=== PATIENT | female | born 1980 | race Caucasian/White ===

== ENCOUNTER 2018-08-09 14:42 | Emergency (ER) | payer BC ==
[2018-08-09] MEDS ORDERED: Ketorolac 60 MG/2 ML SDV IM ONE (15:12)
--- NOTE | 2018-08-09 15:21 | EDM.PDOC ---
ED HPI GENERAL MEDICAL PROBLEM - General Chief Complaint: General Stated Complaint: FALL Time Seen by Provider: 08/09/18 14:42 Source of Information: Reports: Patient, Family History Limitations: Reports: No Limitations - History of Present Illness INITIAL COMMENTS - FREE TEXT/NARRATIVE: 38 y.o.w.f came with her SO to the ed after she fell on ice and hit her right ant gideon. right knee and right ankle. Pt c/o worst H/A ever, neck pain, right knee pain and right ankle pain. No LOC, Pt is not on blood thinner. Pt takes Hydrocodone regularly for gen pain. Pt has peripheral neuropathy as well with right food drop. Pt is wearing a special show for that. No N/V/D or dizziness or any other acute medical medical issues. 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 (see below) (norco) Right knee Pain Score (Numeric/FACES): 8 Headache Pain Score (Numeric/FACES): 8 - Related Data Allergies Allergy/AdvReac Type Severity Reaction Status Date / Time codeine Allergy Rash Verified 08/09/18 14:48 Home Meds: Home Meds ALPRAZolam [Alprazolam] 1 mg PO TID 08/09/18 [History] Aspirin [Halfprin] 81 mg PO DAILY 08/09/18 [History] Cyclobenzaprine [Flexeril] 10 mg PO BID 08/09/18 [History] Escitalopram [Lexapro] 20 mg PO DAILY 08/09/18 [History] Gabapentin [Neurontin] 200 mg PO TID 08/09/18 [History] Hydrocodone/Acetaminophen [Hydrocodon-Acetaminophn 10-325] 1 each PO TID [History] Omeprazole 20 mg PO DAILY 08/09/18 [History] Past Medical History HEENT History: Reports: Impaired Vision, Other (See Below) Other HEENT History: Contact lens bilaterally. Respiratory History: Reports: PE, Other (See Below) Other Respiratory History: Hx: Respiratory distress Gastrointestinal History: Reports: GERD, Other (See Below) Other Gastrointestinal History: Nectrotizing pancreatitis. 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 Psychiatric History: Reports: Anxiety, Depression, PTSD Endocrine/Metabolic History: Reports: Obesity/BMI 30+ Hematologic History: Reports: Blood Transfusion(s) Oncologic (Cancer) History: Reports: Other (See Below) Other Oncologic History: Abdominal - Past Surgical History GI Surgical History: Reports: Cholecystectomy, Other (See Below) Other GI Surgeries/Procedures: Spleenectomy. Social & Family History - Family History Family Medical History: Noncontributory - Tobacco Use Smoking Status *Q: Never Smoker Second Hand Smoke Exposure: No - Caffeine Use Caffeine Use: Reports: Coffee, Energy Drinks, Soda - Recreational Drug Use Recreational Drug Use: No ED ROS GENERAL - Review of Systems Review Of Systems: See Below Constitutional: Reports: No Symptoms HEENT: Reports: No Symptoms Respiratory: Reports: No Symptoms Cardiovascular: Reports: No Symptoms Endocrine: Reports: No Symptoms GI/Abdominal: Reports: No Symptoms : Reports: No Symptoms Musculoskeletal: Reports: Muscle Pain (right lower extremity) Skin: Reports: No Symptoms Neurological: Reports: Other (peripheral neuropathy) Psychiatric: Reports: No Symptoms Hematologic/Lymphatic: Reports: No Symptoms Immunologic: Reports: No Symptoms ED EXAM, GENERAL - Physical Exam Exam: See Below Exam Limited By: No Limitations General Appearance: Alert, WD/WN, Mild Distress, Moderate Distress Eye Exam: Bilateral Eye: Normal Inspection Ears: Normal External Exam Ear Exam: Bilateral Ear: Auricle Normal Nose: Normal Inspection, Normal Mucosa, No Blood Throat/Mouth: Normal Inspection, Normal Lips, Normal Voice, No Airway Compromise Head: Normocephalic, Sinus Tenderness (right temporal tenderness) Neck: Normal Inspection, Supple, Tender Lateral, Tender Midline Respiratory/Chest: No Respiratory Distress, Lungs Clear, Normal Breath Sounds, Chest Non-Tender Cardiovascular: Normal Peripheral Pulses, Regular Rate, Rhythm, No Edema, No Gallop, No Rub Peripheral Pulses: 1+: Radial (R) GI/Abdominal: Normal Bowel Sounds, Soft, Non-Tender, No Organomegaly, No Abnormal Bruit, No Mass, Pelvis Stable (Female) Exam: Deferred Rectal (Female) Exam: Deferred Back Exam: Normal Inspection, Full Range of Motion Extremities: Normal Range of Motion, Normal Capillary Refill, Leg Pain Neurological: Alert, Oriented, CN II-XII Intact, Normal Cognition Psychiatric: Normal Affect, Normal Mood Skin Exam: Warm, Dry, Intact, Normal Color Lymphatic: No Adenopathy Course - Vital Signs Text/Narrative:: 38 y.o.w.f came with her SO to the ed after she fell on ice and hit her right ant gideon. right knee and right ankle. Pt c/o worst H/A ever, neck pain, right knee pain and right ankle pain. No LOC, Pt is not on blood thinner. Pt takes Hydrocodone regularly for gen pain. Pt has peripheral neuropathy as well with right food drop. Pt is wearing a special show for that. No N/V/D or dizziness or any other acute medical medical issues. BP 117/72 RR 18 Pulse ox 98% on RA Temp 36.8 Pulse 87 PE: WNWD W F with H/H, Neck pain, right knee an ankle pain. Pain has FROM of her right nee, no open wounds. Pt has mild tenderness and swelling at her tibeopatellar ligament, Imaging: CT Head and neck were: NAD as per RAD. X ray right ankle were neg. X Ray right knee not indicated at this time. Labs: Not indicated Impression: Mechanical Fall. Tension H/A, Neck sprain pain and right ankle sprain pain after a mechanical fall. Tx: Toradol, Ice, Oxycodone Reexam: Improved Plan: D/C with instruction, pt had pain meds at home. Last Recorded V/S: Last Vital Signs Temp 36.4 C 08/09/18 14:45 Pulse 91 08/09/18 16:15 Resp 18 08/09/18 16:15 BP 101/70 08/09/18 16:15 Pulse Ox 93 L 08/09/18 16:15 - Orders/Labs/Meds Orders: Active Orders 24 hr Category Date Time Status Cooling Warming Measures [RC] ASDIRECTED Care 08/09/18 15:12 Active Ankle Min 3V Rt [CR] Stat Exams 08/09/18 15:19 Taken Cervical Spine wo Cont [CT] Stat Exams 08/09/18 15:17 Taken Head wo Cont [CT] Stat Exams 08/09/18 15:17 Ordered Ice Bag [Ice Therapy] [OM.PC] Routine Oth 08/09/18 15:12 Ordered Meds: Medications Discontinued Medications Generic Name Dose Route Start Last Admin Trade Name Cris PRN Reason Stop Dose Admin Ketorolac Tromethamine 60 mg 08/09/18 15:12 08/09/18 15:17 Toradol IM 08/09/18 15:13 60 mg ONETIME ONE Administration Oxycodone HCl 5 mg 08/09/18 16:11 08/09/18 16:16 Oxycodone PO 08/09/18 16:12 5 mg ONETIME ONE Administration Departure - Departure Time of Disposition: 16:43 Disposition: Home, Self-Care 01 Condition: Good Clinical Impression: Tension headache, Sprain, neck, Injury, knee, leg, ankle, and foot - Discharge Information Instructions: Fall Prevention in the Home, [id number], Ankle Sprain, Easy-to- Read, Tension Headache, Adult, [id number] Referrals: PCP,Not In Area [Primary Care Provider] - Forms: ED Department Discharge Additional Instructions: Please apply ICE to right lower leg, rest ice and elevate right leg, Motrin for mod pain, please follow up with your PMD, please come back if your symptoms get worse acutely - My Orders Last 24 Hours: My Active Orders 08/09/18 15:12 Cooling Warming Measures [RC] ASDIRECTED Ice Bag [Ice Therapy] [OM.PC] Routine 08/09/18 15:17 Cervical Spine wo Cont [CT] Stat Head wo Cont [CT] Stat 08/09/18 15:19 Ankle Min 3V Rt [CR] Stat - Assessment/Plan Last 24 Hours: My Active Orders 08/09/18 15:12 Cooling Warming Measures [RC] ASDIRECTED Ice Bag [Ice Therapy] [OM.PC] Routine 08/09/18 15:17 Cervical Spine wo Cont [CT] Stat Head wo Cont [CT] Stat 08/09/18 15:19 Ankle Min 3V Rt [CR] Stat
[2018-08-09] MEDS ORDERED: oxyCODONE 5 MG Tab PO ONE (16:11)
== END 2018-08-09 17:00 | disposition home or self-care (01) ==
LOC: FB.ED 14:42
DX: S13.9XXA Sprain of joints and ligaments of unspecified parts of neck, initial encounter (principal); S89.91XA Unspecified injury of right lower leg, initial encounter; S99.911A Unspecified injury of right ankle, initial encounter; S99.921A Unspecified injury of right foot, initial encounter; G44.209 Tension-type headache, unspecified, not intractable; G62.9 Polyneuropathy, unspecified; K21.9 Gastro-esophageal reflux disease without esophagitis; F32.9 Major depressive disorder, single episode, unspecified; F41.9 Anxiety disorder, unspecified; Z79.82 Long term (current) use of aspirin; Z79.899 Other long term (current) drug therapy; Z88.5 Allergy status to narcotic agent; Z90.49 Acquired absence of other specified parts of digestive tract; W00.0XXA Fall on same level due to ice and snow, initial encounter
CPT/HCPCS: 70450; 72125; 73610; 96372; 99284; A9270; J1885

== ENCOUNTER 2019-08-03 17:18 | Emergency (ER) | payer BC, MEDICAID ==
[2019-08-03] MEDS ORDERED: Ketorolac 60 MG/2 ML SDV IM ONE (17:34)
--- NOTE | 2019-08-03 17:38 | EDM.PDOC ---
ED HPI GENERAL MEDICAL PROBLEM - General Chief Complaint: Lower Extremity Injury/Pain Stated Complaint: TWISTED RT ANKLE Time Seen by Provider: 08/03/19 17:30 Source of Information: Reports: Patient, Family History Limitations: Reports: No Limitations - History of Present Illness INITIAL COMMENTS - FREE TEXT/NARRATIVE: tripped and fell around noon at home , has pain and swelling of the right ankle , pain , along the lateral foot also not right side thigh pain no bruising swelling of lateral ankle is persistent , pain with ambulation noted in the ankle and in the foot Onset: Sudden Onset Date: 08/03/19 Duration: Hour(s): (2), Constant Location: Reports: Lower Extremity, Right (ankle and foot) Quality: Reports: Ache Severity: Mild Improves with: Reports: Cold Therapy, Immobilization, Rest Worsens with: Reports: Movement Context: Reports: Activity Associated Symptoms: Reports: No Other Symptoms 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, 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 - Related Data Allergies Allergy/AdvReac Type Severity Reaction Status Date / Time codeine Allergy Rash Verified 08/09/18 14:48 Home Meds: Home Meds ALPRAZolam [Alprazolam] 1 mg PO TID 08/09/18 [History] Aspirin [Halfprin] 81 mg PO DAILY 08/09/18 [History] Cyclobenzaprine [Flexeril] 10 mg PO BID 08/09/18 [History] Escitalopram [Lexapro] 20 mg PO DAILY 08/09/18 [History] Gabapentin [Neurontin] 200 mg PO TID 08/09/18 [History] Hydrocodone/Acetaminophen [Hydrocodon-Acetaminophn 10-325] 1 each PO TID [History] Omeprazole 20 mg PO DAILY 08/09/18 [History] Acetaminophen/HYDROcodone [[place] 325-5 MG] 1 tab PO Q6H PRN #6 tab 08/03/19 [Rx] Past Medical History HEENT History: Reports: Impaired Vision, Other (See Below) Other HEENT History: Contact lens bilaterally. Respiratory History: Reports: PE, Other (See Below) Other Respiratory History: Hx: Respiratory distress Gastrointestinal History: Reports: GERD, Other (See Below) Other Gastrointestinal History: Nectrotizing pancreatitis. 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 Psychiatric History: Reports: Anxiety, Depression, PTSD Endocrine/Metabolic History: Reports: Obesity/BMI 30+ Hematologic History: Reports: Blood Transfusion(s) Oncologic (Cancer) History: Reports: Other (See Below) Other Oncologic History: Abdominal - Past Surgical History GI Surgical History: Reports: Cholecystectomy, Other (See Below) Other GI Surgeries/Procedures: Spleenectomy. Social & Family History - Family History Family Medical History: Noncontributory - Caffeine Use Caffeine Use: Reports: Coffee, Energy Drinks, Soda Review of Systems - Review of Systems Review Of Systems: See Below Constitutional: Reports: No Symptoms Eyes: Reports: No Symptoms Ears: Reports: No Symptoms Nose: Reports: No Symptoms Mouth/Throat: Reports: No Symptoms Respiratory: Reports: No Symptoms Cardiovascular: Reports: No Symptoms GI/Abdominal: Reports: No Symptoms Musculoskeletal: Reports: Leg Pain, Foot Pain, Joint Pain, Joint Swelling ( right ankle) Skin: Reports: No Symptoms Neurological: Reports: No Symptoms Psychiatric: Reports: No Symptoms ED EXAM, GENERAL - Physical Exam Exam: See Below Exam Limited By: No Limitations General Appearance: Alert, WD/WN, No Apparent Distress Eye Exam: Bilateral Eye: EOMI Ears: Normal External Exam Throat/Mouth: Normal Inspection Head: Atraumatic, Normocephalic Neck: Supple, Non-Tender Respiratory/Chest: Lungs Clear Cardiovascular: Normal Peripheral Pulses Extremities: Pedal Edema, Joint Swelling (right ankle swelling laterally) Neurological: Alert Psychiatric: Normal Affect Skin Exam: Warm Course - Vital Signs Last Recorded V/S: Last Vital Signs Temp 36.4 C 08/03/19 17:24 Pulse 100 08/03/19 17:24 Resp 14 08/03/19 17:24 BP 112/62 08/03/19 17:24 Pulse Ox 95 08/03/19 17:24 - Orders/Labs/Meds Orders: Active Orders 24 hr Category Date Time Status Ankle Min 3V Rt [CR] Stat Exams 08/03/19 17:35 Taken Foot Comp Min 3V Rt [CR] Stat Exams 08/03/19 17:45 Taken Meds: Medications Discontinued Medications Generic Name Dose Route Start Last Admin Trade Name Freq PRN Reason Stop Dose Admin Ketorolac Tromethamine 60 mg 08/03/19 17:34 08/03/19 17:45 Toradol IM 08/03/19 17:35 60 mg ONETIME ONE Administration Departure - Departure Time of Disposition: 18:40 Disposition: Home, Self-Care 01 Condition: Fair Clinical Impression: Right ankle sprain, Acute pain of right foot - Discharge Information *PRESCRIPTION DRUG MONITORING PROGRAM REVIEWED*: Not Applicable *COPY OF PRESCRIPTION DRUG MONITORING REPORT IN PATIENT CARITO: Not Applicable Instructions: Ankle Sprain, [id number] Referrals: PCP,Not In Area [Primary Care Provider] - Forms: ED Department Discharge Sepsis Event Note - Evaluation Sepsis Screening Result: No Definite Risk - Focused Exam Vital Signs: Vital Signs Temp Pulse Resp BP Pulse Ox 08/03/19 17:24 36.4 C 100 14 112/62 95 Date Exam was Performed: 08/03/19 Time Exam was Performed: 18:24 - My Orders Last 24 Hours: My Active Orders 08/03/19 17:35 Ankle Min 3V Rt [CR] Stat 08/03/19 17:45 Foot Comp Min 3V Rt [CR] Stat - Assessment/Plan Last 24 Hours: My Active Orders 08/03/19 17:35 Ankle Min 3V Rt [CR] Stat 08/03/19 17:45 Foot Comp Min 3V Rt [CR] Stat
[2019-08-03] MEDS ORDERED: Acetaminophen/HYDROcodone 325-5 MG Tab PO ONE (18:29)
--- NOTE | 2019-08-04 10:28 | CR ---
INDICATION: Ankle injury. RIGHT ANKLE: Three views of the right ankle revealed posterior and plantar calcaneal spurs of small size. The ankle mortise appears to be intact without evidence of a fracture, dislocation or other significant bone or joint abnormality. If symptoms persist - if occult fracture site is suspected clinically, reexamination in 10 to 14 days may be helpful. MTDD
--- NOTE | 2019-08-04 10:34 | CR ---
INDICATION: Tripped and fell, pain in lateral right foot. RIGHT FOOT: Three views of the right foot were obtained 08/03/19, no comparisons. Minimal degenerative changes noted at the DIPJ of the second toe at the interphalangeal joint of the great toe and the interphalangeal joint of the fifth toe, as well as at the first metatarsophalangeal joint and minimally at the first metatarsal tarsal joint. Plantar and posterior calcaneal spurs are noted of small size. Overall bone density appears appeared to be fairly normal. A definite acute fracture or dislocation was not identified. IMPRESSION: 1. No acute fracture or dislocation. 2. Relatively minimal osteoarthritis. MTDD
== END 2019-08-03 19:12 | disposition home or self-care (01) ==
LOC: FB.ED 17:18
DX: S93.401A Sprain of unspecified ligament of right ankle, initial encounter (principal); M79.671 Pain in right foot; K21.9 Gastro-esophageal reflux disease without esophagitis; F41.9 Anxiety disorder, unspecified; F32.9 Major depressive disorder, single episode, unspecified; E66.9 Obesity, unspecified; Z68.31 Body mass index [BMI] 31.0-31.9, adult; Z86.711 Personal history of pulmonary embolism; Z88.5 Allergy status to narcotic agent; Z79.82 Long term (current) use of aspirin; Z79.899 Other long term (current) drug therapy; W01.0XXA Fall on same level from slipping, tripping and stumbling without subsequent striking against object, initial encounter
CPT/HCPCS: 73610; 73630; 96372; 99283; A9270; J1885

== ENCOUNTER 2019-09-15 15:24 | Emergency (ER) | payer MEDICAID ==
--- NOTE | 2019-09-15 18:22 | EDM.PDOC ---
ED HPI GENERAL MEDICAL PROBLEM - General Chief Complaint: Head Injury Time Seen by Provider: 09/15/19 15:30 Source of Information: Reports: Patient History Limitations: Reports: No Limitations - History of Present Illness INITIAL COMMENTS - FREE TEXT/NARRATIVE: Patient presented to the Ed because she apparently slipped and fell in the shower. Patient said that she has a neuropathy on her RLE and doesn't have a good sensation on that leg that's why her balance is usually off. She has a brief LOC, less than a minute. She c/o headache,neck pain, Rt shoulder,rt rib and right hip pain. right side of head & right leg Pain Score (Numeric/FACES): 8 - Related Data Allergies Allergy/AdvReac Type Severity Reaction Status Date / Time codeine Allergy Rash Verified 09/15/19 15:35 Home Meds: Home Meds ALPRAZolam [Alprazolam] 1 mg PO TID 08/09/18 [History] Aspirin [Halfprin] 81 mg PO DAILY 08/09/18 [History] Cyclobenzaprine [Flexeril] 10 mg PO BID 08/09/18 [History] Escitalopram [Lexapro] 20 mg PO DAILY 08/09/18 [History] Gabapentin [Neurontin] 200 mg PO TID 08/09/18 [History] Hydrocodone/Acetaminophen [Hydrocodon-Acetaminophn 10-325] 1 each PO TID [History] Omeprazole 20 mg PO DAILY 08/09/18 [History] Acetaminophen/HYDROcodone [[place] 325-5 MG] 1 tab PO Q6H PRN #6 tab 08/03/19 [Rx] Past Medical History HEENT History: Reports: Impaired Vision, Other (See Below) Other HEENT History: Contact lens bilaterally. Respiratory History: Reports: PE, Other (See Below) Other Respiratory History: Hx: Respiratory distress Gastrointestinal History: Reports: GERD, Other (See Below) Other Gastrointestinal History: Nectrotizing pancreatitis. 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 Psychiatric History: Reports: Anxiety, Depression, PTSD Endocrine/Metabolic History: Reports: Obesity/BMI 30+ Hematologic History: Reports: Blood Transfusion(s) Oncologic (Cancer) History: Reports: Other (See Below) Other Oncologic History: Abdominal - Past Surgical History GI Surgical History: Reports: Cholecystectomy, Other (See Below) Other GI Surgeries/Procedures: Spleenectomy. Social & Family History - Family History Family Medical History: Noncontributory - Tobacco Use Smoking Status *Q: Never Smoker - Caffeine Use Caffeine Use: Reports: Coffee, Soda - Recreational Drug Use Recreational Drug Use: No ED ROS GENERAL - Review of Systems Review Of Systems: See Below Constitutional: Reports: No Symptoms HEENT: Reports: No Symptoms Respiratory: Reports: No Symptoms Cardiovascular: Reports: No Symptoms Endocrine: Reports: No Symptoms GI/Abdominal: Reports: No Symptoms : Reports: No Symptoms Musculoskeletal: Reports: Shoulder Pain, Other (rt hip pain,right,rib pain, rt shoulder pain) Skin: Reports: No Symptoms Neurological: Reports: Headache ED EXAM, HEAD INJURY - Physical Exam Exam: See Below Exam Limited By: No Limitations General Appearance: Alert, No Apparent Distress Head: Atraumatic, Normocephalic Eyes: Bilateral Eye: PERRL Ears: Normal External Exam, Normal Canal, Hearing Grossly Normal, Normal TMs Nose: Normal Inspection, Normal Mucousa, No Blood Neck: Full Range of Motion, Muscle Spasm, Paraspinous Muscle Tender Respiratory: No Respiratory Distress, Lungs Clear, Other (tenderness rt rib) Cardiovascular: Normal Peripheral Pulses, Regular Rate, Rhythm, No Edema GI/Abdominal Exam: Normal Bowel Sounds, Soft, Non-Tender Back Exam: Normal Inspection, Full Range of Motion Extremities: Normal Inspection, Other (tenderness rt shoulder and rt hip) Skin: Normal Color Course - Vital Signs Text/Narrative:: Labs,rad result was discussed with patient and and verbalized full understanding Ibuprofen 800 mg with tylenol 1000 po x 1 for headache Last Recorded V/S: Last Vital Signs Temp 36.7 C 09/15/19 15:25 Pulse 78 09/15/19 18:00 Resp 18 09/15/19 18:00 BP 107/64 09/15/19 18:00 Pulse Ox 98 09/15/19 15:25 - Orders/Labs/Meds Orders: Active Orders 24 hr Category Date Time Status Cervical Spine wo Cont [CT] Stat Exams 09/15/19 16:29 Taken Head wo Cont [CT] Stat Exams 09/15/19 16:29 Taken Hip Min 2V or 3V w Pelvis Rt [CR] Stat Exams 09/15/19 16:29 Taken Ribs 2V w Chest Rt [CR] Stat Exams 09/15/19 16:29 Taken Shoulder Comp Rt [CR] Stat Exams 09/15/19 16:29 Taken Labs: Laboratory Tests 09/15/19 09/15/19 09/15/19 Range/Units 16:45 16:45 16:45 WBC 17.0 H (4.5-12.0) X10-3/uL RBC 4.62 (3.23-5.20) x10(6)uL Hgb 14.3 (11.5-15.5) g/dL Hct 43.2 (30.0-51.3) % MCV 93.3 (80-96) fL MCH 30.8 (27.7-33.6) pg MCHC 33.0 (32.2-35.4) g/dL RDW 14.4 (11.5-15.5) % Plt Count 513 H (125-369) X10(3)uL MPV 8.1 (7.4-10.4) fL Add Manual Diff Yes Neutrophils % (Manual) 43 L (46-82) % Lymphocytes % (Manual) 44 H (13-37) % Monocytes % (Manual) 10 (4-12) % Eosinophils % (Manual) 3 (0-5) % PT 9.3 (9.0-11.1) sec INR 0.96 L (1.00-1.24) APTT 23.2 L (24.4-33.2) SECONDS Sodium 142 (135-145) mmol/L Potassium 3.7 (3.5-5.3) mmol/L Chloride 105 (100-110) mmol/L Carbon Dioxide 31 (21-32) mmol/L BUN 7 (7-18) mg/dL Creatinine 0.7 (0.55-1.02) mg/dL Est Cr Clr Drug Dosing 92.25 mL/min Estimated GFR (MDRD) > 60 (>60) BUN/Creatinine Ratio 10.0 (9-20) Glucose 88 (80-116) mg/dL Calcium 8.5 L (8.6-10.2) mg/dL Total Bilirubin 0.3 (0.1-1.3) mg/dL AST 23 (5-25) IU/L ALT 33 (12-36) U/L Alkaline Phosphatase 76 (56-112) IU/L Total Protein 7.5 (6.0-8.0) g/dL Albumin 3.3 L (3.5-5.2) g/dL Globulin 4.2 g/dL Albumin/Globulin Ratio 0.8 Urine Opiates Screen (NEGATIVE) Ur Oxycodone Screen (NEGATIVE) Ur Propoxyphene Screen (NEGATIVE) Ur Barbituates Screen (NEGATIVE) Ur Tricyclics Screen (NEGATIVE) Ur Phencyclidine Scrn (NEGATIVE) Ur Amphetamine Screen (NEGATIVE) Urine MDMA Screen (NEGATIVE) U Benzodiazepines Scrn (NEGATIVE) U Cocaine Metab Screen (NEGATIVE) U Marijuana (THC) Screen (NEGATIVE) Ethyl Alcohol (<0.03) % 09/15/19 09/15/19 Range/Units 16:45 17:43 WBC (4.5-12.0) X10-3/uL RBC (3.23-5.20) x10(6)uL Hgb (11.5-15.5) g/dL Hct (30.0-51.3) % MCV (80-96) fL MCH (27.7-33.6) pg MCHC (32.2-35.4) g/dL RDW (11.5-15.5) % Plt Count (125-369) X10(3)uL MPV (7.4-10.4) fL Add Manual Diff Neutrophils % (Manual) (46-82) % Lymphocytes % (Manual) (13-37) % Monocytes % (Manual) (4-12) % Eosinophils % (Manual) (0-5) % PT (9.0-11.1) sec INR (1.00-1.24) APTT (24.4-33.2) SECONDS Sodium (135-145) mmol/L Potassium (3.5-5.3) mmol/L Chloride (100-110) mmol/L Carbon Dioxide (21-32) mmol/L BUN (7-18) mg/dL Creatinine (0.55-1.02) mg/dL Est Cr Clr Drug Dosing mL/min Estimated GFR (MDRD) (>60) BUN/Creatinine Ratio (9-20) Glucose (80-116) mg/dL Calcium (8.6-10.2) mg/dL Total Bilirubin (0.1-1.3) mg/dL AST (5-25) IU/L ALT (12-36) U/L Alkaline Phosphatase (56-112) IU/L Total Protein (6.0-8.0) g/dL Albumin (3.5-5.2) g/dL Globulin g/dL Albumin/Globulin Ratio Urine Opiates Screen Positive H (NEGATIVE) Ur Oxycodone Screen Negative (NEGATIVE) Ur Propoxyphene Screen Negative (NEGATIVE) Ur Barbituates Screen Negative (NEGATIVE) Ur Tricyclics Screen Positive H (NEGATIVE) Ur Phencyclidine Scrn Negative (NEGATIVE) Ur Amphetamine Screen Negative (NEGATIVE) Urine MDMA Screen Negative (NEGATIVE) U Benzodiazepines Scrn Positive H (NEGATIVE) U Cocaine Metab Screen Negative (NEGATIVE) U Marijuana (THC) Screen Negative (NEGATIVE) Ethyl Alcohol < 0.03 (<0.03) % Meds: Medications Discontinued Medications Generic Name Dose Route Start Last Admin Trade Name Freq PRN Reason Stop Dose Admin Acetaminophen 1,000 mg 09/15/19 18:26 09/15/19 18:31 Tylenol Extra Strength PO 09/15/19 18:27 1,000 mg ONETIME ONE Administration Ibuprofen 800 mg 09/15/19 18:26 09/15/19 18:32 Motrin PO 09/15/19 18:27 800 mg ONETIME ONE Administration Departure - Departure Time of Disposition: 18:20 Disposition: Home, Self-Care 01 Condition: Good Clinical Impression: Head injury, Muscle strain - Discharge Information Instructions: Head Injury, Adult, Muscle Strain, [id number] Referrals: PCP,Not In Area [Primary Care Provider] - Forms: ED Department Discharge Additional Instructions: Please read discharge instructions on head injury and muscle strain Apply ice to sore areas of your body take ibuprofen 800 mg with tylenol 1000 mg 3 times daily as needed for pain follow up as needed Sepsis Event Note - Evaluation Sepsis Screening Result: No Definite Risk - Focused Exam Date Exam was Performed: 09/16/19 Time Exam was Performed: 09:33 - My Orders Last 24 Hours: My Active Orders 09/15/19 16:29 Cervical Spine wo Cont [CT] Stat Head wo Cont [CT] Stat Hip Min 2V or 3V w Pelvis Rt [CR] Stat Ribs 2V w Chest Rt [CR] Stat Shoulder Comp Rt [CR] Stat - Assessment/Plan Last 24 Hours: My Active Orders 09/15/19 16:29 Cervical Spine wo Cont [CT] Stat Head wo Cont [CT] Stat Hip Min 2V or 3V w Pelvis Rt [CR] Stat Ribs 2V w Chest Rt [CR] Stat Shoulder Comp Rt [CR] Stat
[2019-09-15] MEDS: Acetaminophen 500 MG Tab PO ONE (18:31)
[2019-09-15] MEDS: Ibuprofen 800 MG Tab PO ONE (18:32)
== END 2019-09-15 18:23 | disposition home or self-care (01) ==
LOC: FB.ED 15:24
DX: S09.90XA Unspecified injury of head, initial encounter (principal); S16.1XXA Strain of muscle, fascia and tendon at neck level, initial encounter; S43.401A Unspecified sprain of right shoulder joint, initial encounter; S73.101A Unspecified sprain of right hip, initial encounter; S20.211A Contusion of right front wall of thorax, initial encounter; Z86.711 Personal history of pulmonary embolism; K21.9 Gastro-esophageal reflux disease without esophagitis; F41.9 Anxiety disorder, unspecified; F32.9 Major depressive disorder, single episode, unspecified; E66.9 Obesity, unspecified; Z68.30 Body mass index [BMI] 30.0-30.9, adult; Z79.82 Long term (current) use of aspirin; Z79.899 Other long term (current) drug therapy; Z88.5 Allergy status to narcotic agent; W01.0XXA Fall on same level from slipping, tripping and stumbling without subsequent striking against object, initial encounter
CPT/HCPCS: 36415; 70450; 71101-RT; 72125; 73030-RT; 73502-RT; 80053; 80305-QW; 80307; 85025; 85610; 85730; 99285-25; A9270-GY

== ENCOUNTER 2019-10-30 15:58 | Emergency (ER) | payer MEDICAID, OTHER ==
[2019-10-30] MEDS ORDERED: Acetaminophen/HYDROcodone 325-5 MG Tab PO ONE (15:59)
[2019-10-30] MEDS ORDERED: Iopamidol 755 Mg/ML 100 ML Bottle IV ONE (16:58)
[2019-10-30] MEDS ORDERED: Sodium Chloride 0.9% 10 ML Syringe FLUSH PRN (17:09)
--- NOTE | 2019-10-30 17:32 | EDM.PDOC ---
ED HPI GENERAL MEDICAL PROBLEM - General Chief Complaint: Respiratory Problem Time Seen by Provider: 10/30/19 17:31 History Limitations: Reports: No Limitations - History of Present Illness INITIAL COMMENTS - FREE TEXT/NARRATIVE: Was squatting and felt a pop of the knee,and patella was discalced. Complains of significant pain. While transferring from the car to ED,it popped back in. R anterior & posterior chest Pain Score (Numeric/FACES): 5 - Related Data Allergies Allergy/AdvReac Type Severity Reaction Status Date / Time codeine Allergy Rash Verified 10/30/19 16:00 Home Meds: Home Meds ALPRAZolam [Alprazolam] 1 mg PO QID 08/09/18 [History] Aspirin [Halfprin] 81 mg PO DAILY 08/09/18 [History] Cyclobenzaprine [Flexeril] 10 mg PO BID 08/09/18 [History] Escitalopram [Lexapro] 20 mg PO DAILY 08/09/18 [History] Gabapentin [Neurontin] 300 mg PO TID 08/09/18 [History] Hydrocodone/Acetaminophen [Hydrocodon-Acetaminophn 10-325] 1 each PO QID [History] Omeprazole 20 mg PO DAILY 08/09/18 [History] Cefdinir [Omnicef] 300 mg PO BID 10/30/19 [History] Insulin Aspart [NovoLOG] 22 unit SQ TID 10/30/19 [History] Insulin Glargine,Hum.Rec.Anlog [Lantus Solostar] 56 units SQ BEDTIME 10/30/19 [ History] atorvaSTATin [Lipitor] 10 mg PO BEDTIME 10/30/19 [History] predniSONE [Prednisone] 20 mg PO BID 10/30/19 [History] Past Medical History HEENT History: Reports: Impaired Vision, Other (See Below) Other HEENT History: Contact lens bilaterally. Cardiovascular History: Reports: SOB on Exertion, Other (See Below) Other Cardiovascular History: hx peracardialcentesis Respiratory History: Reports: PE, Pneumothorax, Other (See Below) Other Respiratory History: Hx: Respiratory distress, hx thoracentesis, hx former trach Gastrointestinal History: Reports: GERD, Pancreatitis, Other (See Below) Other Gastrointestinal History: Nectrotizing pancreatitis. 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, R shoulder, R brain - Infectious Disease History Infectious Disease History: Reports: Chicken Pox - Past Surgical History Head Surgeries/Procedures: Reports: Other (See Below) HEENT Surgical History: Reports: None Cardiovascular Surgical History: Reports: None Respiratory Surgical History: Reports: Thoracentesis, Tracheostomy GI Surgical History: Reports: Cholecystectomy, EGD, Other (See Below) Other GI Surgeries/Procedures: Spleenectomy, exp lap, numerous abd surgeries, partial removal of pancreas & stomach Female Surgical History: Reports: Lithotripsy/ESWL, Ureteral Stent Neurological Surgical History: Reports: Other (See Below) Other Neurological Surgeries/Procedures: brain surgery for clear cell carcinoma Musculoskeletal Surgical History: Reports: Other (See Below) Other Musculoskeletal Surgeries/Procedures:: R elbow surgery, hx ulnar nerve damage Dermatological Surgical History: Reports: Skin Graft Social & Family History - Family History Family Medical History: Noncontributory - Tobacco Use Smoking Status *Q: Never Smoker - Caffeine Use Caffeine Use: Reports: None - Recreational Drug Use Recreational Drug Use: No ED ROS GENERAL - Review of Systems Review Of Systems: Comprehensive ROS is negative, except as noted in HPI. ED EXAM, GENERAL - Physical Exam Exam: See Below Free Text/Narrative:: Knee in brace. Tender.Diminished range of motion. Exam Limited By: No Limitations General Appearance: Alert Course - Vital Signs Last Recorded V/S: Last Vital Signs Temp 97.4 F 10/30/19 15:58 Pulse 105 H 10/30/19 15:58 Resp 24 H 10/30/19 15:58 BP 134/70 10/30/19 15:58 Pulse Ox 96 10/30/19 15:58 - Orders/Labs/Meds Orders: Active Orders 24 hr Category Date Time Status Ang Chest [CT] Stat Exams 10/30/19 16:40 Taken Sodium Chloride 0.9% [Saline Flush] Med 10/30/19 17:09 Active 10 ml FLUSH ASDIRECTED PRN Peripheral IV Insertion Adult [OM.PC] Routine Oth 10/30/19 17:09 Ordered Medication Orders Sodium Chloride (Saline Flush) 10 ml FLUSH ASDIRECTED PRN PRN Reason: Keep Vein Open Last Admin: 10/30/19 16:50 Dose: 10 ml Labs: Laboratory Tests 10/30/19 10/30/19 10/30/19 Range/Units 16:30 16:30 16:30 WBC 22.7 H (4.5-12.0) X10-3/uL RBC 4.31 (3.23-5.20) x10(6)uL Hgb 13.8 (11.5-15.5) g/dL Hct 40.8 (30.0-51.3) % MCV 94.6 (80-96) fL MCH 32.1 (27.7-33.6) pg MCHC 34.0 (32.2-35.4) g/dL RDW 14.8 (11.5-15.5) % Plt Count 598 H (125-369) X10(3)uL MPV 8.1 (7.4-10.4) fL Add Manual Diff Yes Neutrophils % (Manual) 76 (46-82) % Band Neutrophils % 2 (0-6) % Lymphocytes % (Manual) 20 (13-37) % Monocytes % (Manual) 1 L (4-12) % Basophils % (Manual) 1 (0-2) % D-Dimer, Quantitative 0.23 (0.0-0.59) mg/LFEU Sodium 140 (135-145) mmol/L Potassium 4.5 (3.5-5.3) mmol/L Chloride 104 (100-110) mmol/L Carbon Dioxide 23 (21-32) mmol/L BUN 19 H D (7-18) mg/dL Creatinine 0.9 (0.55-1.02) mg/dL Est Cr Clr Drug Dosing 68.73 mL/min Estimated GFR (MDRD) > 60 (>60) BUN/Creatinine Ratio 21.1 H (9-20) Glucose 151 H (80-116) mg/dL Calcium 8.7 (8.6-10.2) mg/dL Total Bilirubin 0.3 (0.1-1.3) mg/dL AST 14 D (5-25) IU/L ALT 25 D (12-36) U/L Alkaline Phosphatase 76 (56-112) IU/L Troponin I (4.0-60.3) pg/mL NT-Pro-B Natriuret Pep (<=125) pg/mL Total Protein 8.2 H (6.0-8.0) g/dL Albumin 4.0 (3.5-5.2) g/dL Globulin 4.2 g/dL Albumin/Globulin Ratio 1.0 04// Range/Units 16:30 WBC (4.5-12.0) X10-3/uL RBC (3.23-5.20) x10(6)uL Hgb (11.5-15.5) g/dL Hct (30.0-51.3) % MCV (80-96) fL MCH (27.7-33.6) pg MCHC (32.2-35.4) g/dL RDW (11.5-15.5) % Plt Count (125-369) X10(3)uL MPV (7.4-10.4) fL Add Manual Diff Neutrophils % (Manual) (46-82) % Band Neutrophils % (0-6) % Lymphocytes % (Manual) (13-37) % Monocytes % (Manual) (4-12) % Basophils % (Manual) (0-2) % D-Dimer, Quantitative (0.0-0.59) mg/LFEU Sodium (135-145) mmol/L Potassium (3.5-5.3) mmol/L Chloride (100-110) mmol/L Carbon Dioxide (21-32) mmol/L BUN (7-18) mg/dL Creatinine (0.55-1.02) mg/dL Est Cr Clr Drug Dosing mL/min Estimated GFR (MDRD) (>60) BUN/Creatinine Ratio (9-20) Glucose (80-116) mg/dL Calcium (8.6-10.2) mg/dL Total Bilirubin (0.1-1.3) mg/dL AST (5-25) IU/L ALT (12-36) U/L Alkaline Phosphatase (56-112) IU/L Troponin I 4.5 (4.0-60.3) pg/mL NT-Pro-B Natriuret Pep 316 H (<=125) pg/mL Total Protein (6.0-8.0) g/dL Albumin (3.5-5.2) g/dL Globulin g/dL Albumin/Globulin Ratio Meds: Medications Generic Name Dose Route Start Last Admin Trade Name Freq PRN Reason Stop Dose Admin Sodium Chloride 10 ml 10/30/19 17:09 10/30/19 16:50 Saline Flush FLUSH 10 ml ASDIRECTED PRN Administration Keep Vein Open Discontinued Medications Generic Name Dose Route Start Last Admin Trade Name Freq PRN Reason Stop Dose Admin Iopamidol 100 ml 10/30/19 16:58 10/30/19 17:14 Isovue-370 (76%) IV 10/30/19 16:59 100 ml . DIRECTED ONE Administration Morphine Sulfate 4 mg 10/30/19 16:43 10/30/19 16:51 Morphine IVPUSH 10/30/19 16:44 4 mg ONETIME ONE Administration Departure - Discharge Information Referrals: PCP,Not In Area [Primary Care Provider] - Sepsis Event Note - Evaluation Sepsis Screening Result: No Definite Risk - Focused Exam Vital Signs: Vital Signs Temp Pulse Resp BP Pulse Ox 10/30/19 15:58 97.4 F 105 H 24 H 134/70 96 Date Exam was Performed: 10/30/19 Time Exam was Performed: 17:31 - Problem List Review Problem List Initiated/Reviewed/Updated: Yes - My Orders Last 24 Hours: My Active Orders 10/30/19 16:40 Ang Chest [CT] Stat 10/30/19 17:09 Sodium Chloride 0.9% [Saline Flush] 10 ml FLUSH ASDIRECTED PRN Peripheral IV Insertion Adult [OM.PC] Routine - Assessment/Plan Last 24 Hours: My Active Orders 10/30/19 16:40 Ang Chest [CT] Stat 10/30/19 17:09 Sodium Chloride 0.9% [Saline Flush] 10 ml FLUSH ASDIRECTED PRN Peripheral IV Insertion Adult [OM.PC] Routine
[2019-10-30] MEDS ORDERED: HYDROmorphone 2 MG/ML SDV IVPUSH ONE (17:38)
[2019-10-30] MEDS ORDERED: Ketorolac 30 MG/ML SDV IVPUSH ONE (18:30)
--- NOTE | 2019-10-30 20:32 | ER ---
DATE SEEN: 10/30/2019 CHIEF COMPLAINT: Chest pain, right sided. HISTORY OF PRESENT ILLNESS: This is a 39-year-old female with right-sided pleuritic chest pain when she breathes. These symptoms are going on for 3 weeks, got worse 2 days ago. Has been seen virtually twice, treated with cephalexin and prednisone. However, symptoms persisted. She has no cough or fever. No contact with anyone with novel coronavirus infection. No recent travel or surgeries. PAST MEDICAL HISTORY: Her past medical history, however, is significant for pulmonary embolism 2017, pericardial effusion, pleural effusion as well, pneumonia. ALLERGIES: See the [employer]. MEDICATIONS: See the [employer]. PHYSICAL EXAMINATION: GENERAL: She appears anxious. VITAL SIGNS: Her blood pressure is normal, pulse 105. ENT: Negative. CHEST: Tenderness on the right chest wall and rib cage. LUNGS: Clear otherwise. MENTAL STATUS: Normal affect and speech except anxiety. LABORATORY DATA: CBC showed a white cell count of 22,000. Troponin is negative. D-dimer is negative. CT of the chest was unremarkable. IMPRESSION: 1. Chest wall pain. 2. Shortness of breath. PLAN: I ordered COVID-19 test. The patient advised to self-quarantine. I did give her morphine 4 mg initially and then 1 mg of Dilaudid. I will discharge her home on hydrocodone to use 1 tablet t.i.d. p.r.n. for pain and follow up PCP on Friday. /[id number] 2023 ALBERTA/JACK
== END 2019-10-30 18:40 | disposition home or self-care (01) ==
LOC: FB.ED 15:58
DX: R07.89 Other chest pain (principal); R06.02 Shortness of breath
CPT/HCPCS: 36415; 71275; 80053; 83880; 84484; 85025; 85379; 87635; 93005; 96374; 96375; 99285; A9270; J1170; J1885; J2270; Q9967; U0002

== ENCOUNTER 2019-12-06 00:56 | Observation (INO) | payer MEDICAID, OTHER ==
[2019-12-06] MEDS ORDERED: Sodium Chloride 0.9% 10 ML Syringe FLUSH PRN (01:14)
--- NOTE | 2019-12-06 01:33 | EDM.PDOC ---
ED HPI GENERAL MEDICAL PROBLEM - General Chief Complaint: Diabetic Complaint Stated Complaint: low blood sugar Time Seen by Provider: 12/06/19 01:00 Source of Information: Reports: Patient, EMS, Significant Other History Limitations: Reports: Altered Mental Status - History of Present Illness INITIAL COMMENTS - FREE TEXT/NARRATIVE: Leatha arrives to [facility] ED by EMS following apparent hypoglycemic episode overnight. The EMS call came at 2330 that she was discovered to be confused and staggering after returning from the bathroom. The service dog that detects diabetic issues became increasingly noisy, prompting EMS call. Upon arrival, her BS 53 mg%, and she was administered 12.5 gm D50 with some improvement in BS 90's. Her BP was low at 70's/50's, and IV NS bolus was started. Sensorium remained lethargic during transfer. Upon arrival, BPs remain low, random BS 97 mg%, BP 80's/60's. She is orientated, GCS 15 although some latency to verbal responses. She is a known Type I DM who started insulin therapy in Jul 2019.She recalls taking the Novolog U100 35 U SQ at dinner time, but did not take the Lantus U100 56 U in the evening. Abdominal, kwesi RLQ Pain Score (Numeric/FACES): 8 - Related Data Allergies Allergy/AdvReac Type Severity Reaction Status Date / Time codeine Allergy Rash Verified 12/06/19 01:23 Home Meds: Home Meds ALPRAZolam [Alprazolam] 1 mg PO QID 08/09/18 [History] Aspirin [Halfprin] 81 mg PO DAILY 08/09/18 [History] Escitalopram [Lexapro] 20 mg PO DAILY 08/09/18 [History] Gabapentin [Neurontin] 300 mg PO TID 08/09/18 [History] Hydrocodone/Acetaminophen [Hydrocodon-Acetaminophn 10-325] 1 each PO QID PRN [History] RX: Cyclobenzaprine [Flexeril] 10 mg PO BID 08/09/18 [History] RX: Omeprazole 20 mg PO DAILY 08/09/18 [History] Insulin Aspart [NovoLOG] 22 unit SQ TID 10/30/19 [History] Insulin Glargine,Hum.Rec.Anlog [Lantus Solostar] 62 units SQ BEDTIME 10/30/19 [ History] atorvaSTATin [Lipitor] 10 mg PO BEDTIME 10/30/19 [History] Insulin Aspart [NovoLOG] 1 - 12 unit SQ WITHMEALSANDBED PRN 12/06/19 [History] Past Medical History HEENT History: Reports: Impaired Vision, Other (See Below) Other HEENT History: Contact lens bilaterally. Cardiovascular History: Reports: SOB on Exertion, Other (See Below) Other Cardiovascular History: hx peracardialcentesis Respiratory History: Reports: PE, Pneumothorax, Other (See Below) Other Respiratory History: Hx: Respiratory distress, hx thoracentesis, hx former trach Gastrointestinal History: Reports: GERD, Pancreatitis, Other (See Below) Other Gastrointestinal History: Nectrotizing pancreatitis. 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, R shoulder, R brain - Infectious Disease History Infectious Disease History: Reports: Chicken Pox - Past Surgical History Head Surgeries/Procedures: Reports: Other (See Below) HEENT Surgical History: Reports: None Cardiovascular Surgical History: Reports: None Respiratory Surgical History: Reports: Thoracentesis, Tracheostomy GI Surgical History: Reports: Cholecystectomy, EGD, Other (See Below) Other GI Surgeries/Procedures: Spleenectomy, exp lap, numerous abd surgeries, partial removal of pancreas & stomach Female Surgical History: Reports: Lithotripsy/ESWL, Ureteral Stent Neurological Surgical History: Reports: Other (See Below) Other Neurological Surgeries/Procedures: brain surgery for clear cell carcinoma Musculoskeletal Surgical History: Reports: Other (See Below) Other Musculoskeletal Surgeries/Procedures:: R elbow surgery, hx ulnar nerve damage Dermatological Surgical History: Reports: Skin Graft Social & Family History - Family History Family Medical History: Noncontributory - Tobacco Use Smoking Status *Q: Never Smoker - Caffeine Use Caffeine Use: Reports: Coffee, Energy Drinks, Soda, Tea - Alcohol Use Days Per Week of Alcohol Use: 1 Number of Drinks Per Day: 1 Total Drinks Per Week: 1 - Recreational Drug Use Recreational Drug Use: No ED ROS GENERAL - Review of Systems Review Of Systems: See Below Constitutional: Reports: Weakness HEENT: Reports: No Symptoms Respiratory: Reports: No Symptoms Cardiovascular: Reports: Blood Pressure Problem Endocrine: Reports: Low Glucose GI/Abdominal: Reports: No Symptoms : Reports: No Symptoms Musculoskeletal: Reports: No Symptoms Skin: Reports: No Symptoms Neurological: Reports: Confusion, Pre-Existing Deficit (Foot drop R lower extremity) Psychiatric: Reports: Confusion Hematologic/Lymphatic: Reports: No Symptoms Immunologic: Reports: No Symptoms ED EXAM GENERAL NO PERIP PULSE - Physical Exam Exam: See Below Exam Limited By: Altered Mental Status General Appearance: WD/WN, Lethargic, Obese Eye Exam: Bilateral Eye: EOMI, Normal Fundi, PERRL Ears: Normal External Exam Nose: Normal Inspection Throat/Mouth: Normal Inspection, Normal Oropharynx, No Airway Compromise Head: Normocephalic Neck: Normal Inspection, Supple, Non-Tender Respiratory/Chest: Lungs Clear, Normal Breath Sounds Cardiovascular: Regular Rate, Rhythm, No Edema, No Murmur GI/Abdominal: Normal Bowel Sounds, Soft, Non-Tender, No Organomegaly, No Distention, No Mass (Female) Exam: Deferred Rectal (Female) Exam: Deferred Back Exam: Normal Inspection Extremities: Normal Inspection Neurological: Alert, CN II-XII Intact, Slow to Respond Psychiatric: Flat Affect Skin Exam: Warm, Dry, Intact, Normal Color, No Rash Lymphatic: No Adenopathy Course - Vital Signs Text/Narrative:: Following initial assessment, D5LR was added at 250 ml/hr, and monitoring pending results of screening labs: The WBC 28,600 withuut shift, Hgb 12.9 gm, plt 551,000 adequate; CMP noted d dimer 1.17, CRP .8, lactic acid 1.5, BUN 23, Cr 1.3; UA noted pos nitrites, UC set up; chest x ray: no active infiltrates; she will be admitted to Observation w telemetry; BS 88 mg% at time of transfer. Last Recorded V/S: Last Vital Signs Temp 36.3 C 12/06/19 01:10 Pulse 96 12/06/19 01:10 Resp 16 12/06/19 01:10 BP 90/57 L 12/06/19 01:10 Pulse Ox 92 L 12/06/19 01:10 - Orders/Labs/Meds Orders: Active Orders 24 hr Category Date Time Status Patient Status Manage Transfer [TRANSFER] Routine ADT 12/06/19 02:45 Active Patient Status [ADT] Routine ADT 12/06/19 03:09 Ordered Ambulate [RC] PER UNIT ROUTINE Care 12/06/19 03:09 Ordered Antiembolic Devices [RC] .Routine Care 12/06/19 03:09 Ordered Bedrest Bedside Commode [RC] ASDIRECTED Care 12/06/19 03:09 Ordered Blood Glucose Check, Bedside [RC] QIDACANDBED Care 12/06/19 03:09 Ordered Height and Weight [RC] UPON Care 12/06/19 03:09 Ordered Intake and Output [RC] QSHIFT Care 12/06/19 03:09 Ordered Telemetry Monitoring [Cardiac Monitoring] [RC] .As Care 12/06/19 03:09 Ordered Directed VTE/DVT Education [RC] Click to Edit Care 12/06/19 03:09 Ordered Vital Signs [RC] Q4H Care 12/06/19 03:09 Ordered Chest 1V Frontal [CR] Stat Exams 12/06/19 02:43 Taken Dextrose 5%-Lactated Ringers 2,000 ml Med 12/06/19 01:15 Active IV ASDIRECTED Sodium Chloride 0.9% [Saline Flush] Med 12/06/19 01:14 Active 10 ml FLUSH ASDIRECTED PRN Peripheral IV Insertion Adult [OM.PC] Routine Oth 12/06/19 01:14 Ordered Resuscitation Status Routine Resus Stat 12/06/19 02:46 Ordered EKG 12 Lead [EK] Routine Ther 12/06/19 01:14 Ordered Medication Orders Dextrose/Lactated Ringer's (Dextrose 5%-Lactated Ringers) 2,000 mls @ 250 mls/ hr IV ASDIRECTED LAURA Last Admin: 12/06/19 01:17 Dose: 250 mls/hr Sodium Chloride (Saline Flush) 10 ml FLUSH ASDIRECTED PRN PRN Reason: Keep Vein Open Labs: Laboratory Tests 12/06/19 12/06/19 12/06/19 Range/Units 01:12 01:12 01:12 WBC 28.6 H (4.5-12.0) X10-3/uL RBC 4.19 (3.23-5.20) x10(6)uL Hgb 12.9 (11.5-15.5) g/dL Hct 40.4 (30.0-51.3) % MCV 96.5 H (80-96) fL MCH 30.9 (27.7-33.6) pg MCHC 32.0 L (32.2-35.4) g/dL RDW 14.1 (11.5-15.5) % Plt Count 551 H (125-369) X10(3)uL MPV 8.2 (7.4-10.4) fL Add Manual Diff Yes Neutrophils % (Manual) 73 (46-82) % Lymphocytes % (Manual) 18 (13-37) % Monocytes % (Manual) 6 (4-12) % Eosinophils % (Manual) 2 (0-5) % Basophils % (Manual) 1 (0-2) % D-Dimer, Quantitative 1.17 H (0.0-0.59) mg/LFEU Sodium 141 (135-145) mmol/L Potassium 4.1 (3.5-5.3) mmol/L Chloride 104 (100-110) mmol/L Carbon Dioxide 28 (21-32) mmol/L BUN 23 H (7-18) mg/dL Creatinine 1.3 H (0.55-1.02) mg/dL Est Cr Clr Drug Dosing TNP Estimated GFR (MDRD) 45 L (>60) BUN/Creatinine Ratio 17.7 (9-20) Glucose 88 (80-116) mg/dL Lactic Acid (0.4-2.0) mmol/L Calcium 8.2 L (8.6-10.2) mg/dL Total Bilirubin 0.2 (0.1-1.3) mg/dL AST 25 D (5-25) IU/L ALT 30 D (12-36) U/L Alkaline Phosphatase 69 (56-112) IU/L Troponin I (4.0-60.3) pg/mL C-Reactive Protein (0.5-0.9) mg/dL Total Protein 7.0 (6.0-8.0) g/dL Albumin 3.4 L (3.5-5.2) g/dL Globulin 3.6 g/dL Albumin/Globulin Ratio 0.9 Urine Color (YELLOW) Urine Appearance (CLEAR) Urine pH (5.0-6.5) Ur Specific [place] (1.010-1.025) Urine Protein (NEGATIVE) mg/dL Urine Glucose (UA) (NORMAL) mg/dL Urine Ketones (NEGATIVE) mg/dL Urine Occult Blood (NEGATIVE) Urine Nitrite (NEGATIVE) Urine Bilirubin (NEGATIVE) Urine Urobilinogen (NEGATIVE) mg/dL Ur Leukocyte Esterase (NEGATIVE) Urine RBC (0-5) Urine WBC (0-5) Ur Squamous Epith Cells (NS,R,O) Urine Bacteria (NS) 12/06/19 12/06/19 12/06/19 Range/Units 01:12 01:12 01:12 WBC (4.5-12.0) X10-3/uL RBC (3.23-5.20) x10(6)uL Hgb (11.5-15.5) g/dL Hct (30.0-51.3) % MCV (80-96) fL MCH (27.7-33.6) pg MCHC (32.2-35.4) g/dL RDW (11.5-15.5) % Plt Count (125-369) X10(3)uL MPV (7.4-10.4) fL Add Manual Diff Neutrophils % (Manual) (46-82) % Lymphocytes % (Manual) (13-37) % Monocytes % (Manual) (4-12) % Eosinophils % (Manual) (0-5) % Basophils % (Manual) (0-2) % D-Dimer, Quantitative (0.0-0.59) mg/LFEU Sodium (135-145) mmol/L Potassium (3.5-5.3) mmol/L Chloride (100-110) mmol/L Carbon Dioxide (21-32) mmol/L BUN (7-18) mg/dL Creatinine (0.55-1.02) mg/dL Est Cr Clr Drug Dosing Estimated GFR (MDRD) (>60) BUN/Creatinine Ratio (9-20) Glucose (80-116) mg/dL Lactic Acid 1.5 (0.4-2.0) mmol/L Calcium (8.6-10.2) mg/dL Total Bilirubin (0.1-1.3) mg/dL AST (5-25) IU/L ALT (12-36) U/L Alkaline Phosphatase (56-112) IU/L Troponin I 4.2 (4.0-60.3) pg/mL C-Reactive Protein 0.8 (0.5-0.9) mg/dL Total Protein (6.0-8.0) g/dL Albumin (3.5-5.2) g/dL Globulin g/dL Albumin/Globulin Ratio Urine Color (YELLOW) Urine Appearance (CLEAR) Urine pH (5.0-6.5) Ur Specific [place] (1.010-1.025) Urine Protein (NEGATIVE) mg/dL Urine Glucose (UA) (NORMAL) mg/dL Urine Ketones (NEGATIVE) mg/dL Urine Occult Blood (NEGATIVE) Urine Nitrite (NEGATIVE) Urine Bilirubin (NEGATIVE) Urine Urobilinogen (NEGATIVE) mg/dL Ur Leukocyte Esterase (NEGATIVE) Urine RBC (0-5) Urine WBC (0-5) Ur Squamous Epith Cells (NS,R,O) Urine Bacteria (NS) 12/06/19 Range/Units 02:07 WBC (4.5-12.0) X10-3/uL RBC (3.23-5.20) x10(6)uL Hgb (11.5-15.5) g/dL Hct (30.0-51.3) % MCV (80-96) fL MCH (27.7-33.6) pg MCHC (32.2-35.4) g/dL RDW (11.5-15.5) % Plt Count (125-369) X10(3)uL MPV (7.4-10.4) fL Add Manual Diff Neutrophils % (Manual) (46-82) % Lymphocytes % (Manual) (13-37) % Monocytes % (Manual) (4-12) % Eosinophils % (Manual) (0-5) % Basophils % (Manual) (0-2) % D-Dimer, Quantitative (0.0-0.59) mg/LFEU Sodium (135-145) mmol/L Potassium (3.5-5.3) mmol/L Chloride (100-110) mmol/L Carbon Dioxide (21-32) mmol/L BUN (7-18) mg/dL Creatinine (0.55-1.02) mg/dL Est Cr Clr Drug Dosing Estimated GFR (MDRD) (>60) BUN/Creatinine Ratio (9-20) Glucose (80-116) mg/dL Lactic Acid (0.4-2.0) mmol/L Calcium (8.6-10.2) mg/dL Total Bilirubin (0.1-1.3) mg/dL AST (5-25) IU/L ALT (12-36) U/L Alkaline Phosphatase (56-112) IU/L Troponin I (4.0-60.3) pg/mL C-Reactive Protein (0.5-0.9) mg/dL Total Protein (6.0-8.0) g/dL Albumin (3.5-5.2) g/dL Globulin g/dL Albumin/Globulin Ratio Urine Color Yellow (YELLOW) Urine Appearance Cloudy (CLEAR) Urine pH 5.0 (5.0-6.5) Ur Specific [place] 1.025 (1.010-1.025) Urine Protein Trace (NEGATIVE) mg/dL Urine Glucose (UA) Normal (NORMAL) mg/dL Urine Ketones 15 H (NEGATIVE) mg/dL Urine Occult Blood Negative (NEGATIVE) Urine Nitrite Positive H (NEGATIVE) Urine Bilirubin Small H (NEGATIVE) Urine Urobilinogen 1 H (NEGATIVE) mg/dL Ur Leukocyte Esterase Moderate H (NEGATIVE) Urine RBC 0-5 (0-5) Urine WBC 5-10 H (0-5) Ur Squamous Epith Cells Moderate H (NS,R,O) Urine Bacteria Many H (NS) Meds: Medications Generic Name Dose Route Start Last Admin Trade Name Freq PRN Reason Stop Dose Admin Dextrose/Lactated Ringer's 2,000 mls @ 250 mls/hr 12/06/19 01:15 12/06/19 01: 17 Dextrose 5%-Lactated Ringers IV 250 mls/hr ASDIRECTED LAURA Administration Sodium Chloride 10 ml 12/06/19 01:14 Saline Flush FLUSH ASDIRECTED PRN Keep Vein Open Discontinued Medications Generic Name Dose Route Start Last Admin Trade Name Freq PRN Reason Stop Dose Admin Hydrocodone Bitart/Acetaminophen 1 tab 12/06/19 02:54 12/06/19 03:08 [employer] 325-10 Mg PO 12/06/19 02:55 1 tab ONETIME ONE Administration Ondansetron HCl 4 mg 12/06/19 01:51 12/06/19 02:10 Zofran IVPUSH 12/06/19 01:52 4 mg ONETIME ONE Administration Departure - Departure Time of Disposition: 02:41 Disposition: Refer to Observation Condition: Fair Clinical Impression: Hypoglycemia - Discharge Information *PRESCRIPTION DRUG MONITORING PROGRAM REVIEWED*: Not Applicable *COPY OF PRESCRIPTION DRUG MONITORING REPORT IN PATIENT CARITO: Not Applicable Sepsis Event Note - Evaluation Sepsis Screening Result: No Definite Risk - Focused Exam Vital Signs: Vital Signs Temp Pulse Resp BP Pulse Ox Pulse Ox 12/06/19 01:10 36.3 C 96 16 90/57 L 92 L 12/06/19 01:00 88 L Date Exam was Performed: 12/06/19 Time Exam was Performed: 03:09 - Problem List & Annotations (1) Abdominal pain, chronic, generalized SNOMED Code(s): 259905890 Code(s): R10.84 - GENERALIZED ABDOMINAL PAIN; G89.29 - OTHER CHRONIC PAIN Status: Acute Current Visit: Yes Annotation/Comment:: chronic abdominal pain post op extensive abdominal surgery, she takes hydrocodone 10/325 at home (2) Hypoglycemia SNOMED Code(s): 091387049 Code(s): E16.2 - HYPOGLYCEMIA, UNSPECIFIED Status: Acute Current Visit: Yes Annotation/Comment:: patient remains lethargic, and will be admitted to Observation - Problem List Review Problem List Initiated/Reviewed/Updated: Yes - My Orders Last 24 Hours: My Active Orders 12/06/19 01:14 Sodium Chloride 0.9% [Saline Flush] 10 ml FLUSH ASDIRECTED PRN Peripheral IV Insertion Adult [OM.PC] Routine EKG 12 Lead [EK] Routine 12/06/19 01:15 Dextrose 5%-Lactated Ringers 2,000 ml IV ASDIRECTED 12/06/19 02:43 Chest 1V Frontal [CR] Stat 12/06/19 02:45 Patient Status Manage Transfer [TRANSFER] Routine 12/06/19 02:46 Resuscitation Status Routine 12/06/19 03:09 Patient Status [ADT] Routine Ambulate [RC] PER UNIT ROUTINE Antiembolic Devices [RC] .Routine Bedrest Bedside Commode [RC] ASDIRECTED Blood Glucose Check, Bedside [RC] QIDACANDBED Height and Weight [RC] UPON Intake and Output [RC] QSHIFT Telemetry Monitoring [Cardiac Monitoring] [RC] .As Directed VTE/DVT Education [RC] Click to Edit Vital Signs [RC] Q4H 12/06/19 Breakfast Clear Liquid Diet [DIET] - Assessment/Plan Last 24 Hours: My Active Orders 12/06/19 01:14 Sodium Chloride 0.9% [Saline Flush] 10 ml FLUSH ASDIRECTED PRN Peripheral IV Insertion Adult [OM.PC] Routine EKG 12 Lead [EK] Routine 12/06/19 01:15 Dextrose 5%-Lactated Ringers 2,000 ml IV ASDIRECTED 12/06/19 02:43 Chest 1V Frontal [CR] Stat 12/06/19 02:45 Patient Status Manage Transfer [TRANSFER] Routine 12/06/19 02:46 Resuscitation Status Routine 12/06/19 03:09 Patient Status [ADT] Routine Ambulate [RC] PER UNIT ROUTINE Antiembolic Devices [RC] .Routine Bedrest Bedside Commode [RC] ASDIRECTED Blood Glucose Check, Bedside [RC] QIDACANDBED Height and Weight [RC] UPON Intake and Output [RC] QSHIFT Telemetry Monitoring [Cardiac Monitoring] [RC] .As Directed VTE/DVT Education [RC] Click to Edit Vital Signs [RC] Q4H 12/06/19 Breakfast Clear Liquid Diet [DIET] Plan: Hospitalist to see in the am.
[2019-12-06] MEDS ORDERED: Ondansetron 4 MG/2 ML SDV IVPUSH ONE (01:51)
[2019-12-06] MEDS ORDERED: Acetaminophen/HYDROcodone 325-10 MG Tab PO ONE ×2 (02:54→03:09)
[2019-12-06] MEDS ORDERED: Ketorolac 30 MG/ML SDV IVPUSH PRN (08:47)
[2019-12-06] MEDS ORDERED: Acetaminophen/HYDROcodone 325-10 MG Tab PO PRN (08:50)
--- NOTE | 2019-12-06 08:58 | PCM.HP.2 ---
H&P History of Present Illness - General Date of Service: 12/06/19 Admit Problem/Dx: Admission Diagnosis/Problem Admission Diagnosis/Problem Hypoglycemia due to type 1 diabetes mellitus Source of Information: Patient History Limitations: Reports: No Limitations - History of Present Illness Initial Comments - Free Text/Narative: Leatha is a 39-year-old female who has history of type 1 diabetes and was admitted for hypoglycemia. She had ablood sugar of 50 upon presentation by EMS.She also has a history of chronic pain, anxiety disorder, and a previous history of PE.She has a history of pericardial effusion thoracentesis and pericardiocentesis Overnight she has been hypoxic needing oxygen supplementation.This morning about chronic abdominal pain, fever headaches, upper respiratory or urinary symptoms Abdominal, kwesi RLQ Pain Score (Numeric/FACES): 7 - Related Data Allergies/Adverse Reactions: Allergies Allergy/AdvReac Type Severity Reaction Status Date / Time codeine Allergy Rash Verified 12/06/19 01:23 Home Medications: Home Meds ALPRAZolam [Alprazolam] 1 mg PO QID 08/09/18 [History] Aspirin [Halfprin] 81 mg PO DAILY 08/09/18 [History] Cyclobenzaprine [Flexeril] 10 mg PO BID 08/09/18 [History] Escitalopram [Lexapro] 20 mg PO DAILY 08/09/18 [History] Gabapentin [Neurontin] 300 mg PO TID 08/09/18 [History] Hydrocodone/Acetaminophen [Hydrocodon-Acetaminophn 10-325] 1 each PO QID PRN [History] Omeprazole 20 mg PO DAILY 08/09/18 [History] Insulin Aspart [NovoLOG] 22 unit SQ TID 10/30/19 [History] Insulin Glargine,Hum.Rec.Anlog [Lantus Solostar] 62 units SQ BEDTIME 10/30/19 [ History] atorvaSTATin [Lipitor] 10 mg PO BEDTIME 10/30/19 [History] Insulin Aspart [NovoLOG] 1 - 12 unit SQ WITHMEALSANDBED PRN 12/06/19 [History] Past Medical History HEENT History: Reports: Impaired Vision, Other (See Below) Other HEENT History: Contact lens bilaterally. Cardiovascular History: Reports: SOB on Exertion, Other (See Below) Other Cardiovascular History: hx peracardialcentesis Respiratory History: Reports: PE, Pneumothorax, Other (See Below) Other Respiratory History: Hx: Respiratory distress, hx thoracentesis, hx former trach, Pneumonia Gastrointestinal History: Reports: GERD, Pancreatitis, Other (See Below) Other Gastrointestinal History: Nectrotizing pancreatitis. 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, R shoulder, R brain - Infectious Disease History Infectious Disease History: Reports: Chicken Pox - Past Surgical History Head Surgeries/Procedures: Reports: Other (See Below) HEENT Surgical History: Reports: None Cardiovascular Surgical History: Reports: None Respiratory Surgical History: Reports: Thoracentesis, Tracheostomy GI Surgical History: Reports: Cholecystectomy, EGD, Other (See Below) Other GI Surgeries/Procedures: Spleenectomy, exp lap, numerous abd surgeries, partial removal of pancreas & stomach Female Surgical History: Reports: Lithotripsy/ESWL, Ureteral Stent Neurological Surgical History: Reports: Other (See Below) Other Neurological Surgeries/Procedures: brain surgery for clear cell carcinoma Musculoskeletal Surgical History: Reports: Other (See Below) Other Musculoskeletal Surgeries/Procedures:: R elbow surgery, hx ulnar nerve damage Dermatological Surgical History: Reports: Skin Graft Social & Family History - Family History Family Medical History: Noncontributory - Tobacco Use Smoking Status *Q: Never Smoker - Caffeine Use Caffeine Use: Reports: Coffee, Energy Drinks, Soda, Tea Other Caffeine Use: Energy drinks 2/week, Coffee - Alcohol Use Days Per Week of Alcohol Use: 1 Number of Drinks Per Day: 1 Total Drinks Per Week: 1 - Recreational Drug Use Recreational Drug Use: No H&P Review of Systems - Review of Systems: Review Of Systems: Comprehensive ROS is negative, except as noted in HPI. Exam - Exam Exam: See Below - Vital Signs Vital Signs: Last Vital Signs Temp 97.7 F 05/18/20 07:50 Pulse 85 12/06/19 07:50 Resp 24 H 12/06/19 07:50 BP 83/60 L 12/06/19 07:50 Pulse Ox 95 12/06/19 07:50 Weight: 108.635 kg - Exam General: Alert, Oriented, 4 HEENT: PERRLA, Hearing Intact, Mucosa Moist & [place], Nares Patent, Normal Nasal Septum, Posterior Pharynx Clear, Conjunctiva Clear, EOMI, EACs Clear, TMs Clear Neck: Supple, Trachea Midline, 2 Lungs: Clear to Auscultation, Normal Respiratory Effort Cardiovascular: Regular Rate, Regular Rhythm GI/Abdominal Exam: Normal Bowel Sounds, Soft, Tender. No: Splenomegaly (Female) Exam: Deferred Rectal (Female) Exam: Deferred Back Exam: Normal Inspection, Full Range of Motion, NT Extremities: Normal Inspection, Normal Range of Motion, Non-Tender, No Pedal Edema, Normal Capillary Refill Skin: Warm, Dry, Intact Neurological: Cranial Nerves Intact, Reflexes Equal Bilateral Neuro Extensive - Mental Status: Inattentive Neuro Extensive - Motor, Sensory, Reflexes: Other (Drop foot,right) Psychiatric: Alert, Normal Affect, Normal Mood - Patient Data Lab Results Last 24 hrs: Laboratory Results - last 24 hr 12/06/19 12/06/19 12/06/19 Range/Units 01:12 01:12 01:12 WBC 28.6 H (4.5-12.0) X10-3/uL RBC 4.19 (3.23-5.20) x10(6)uL Hgb 12.9 (11.5-15.5) g/dL Hct 40.4 (30.0-51.3) % MCV 96.5 H (80-96) fL MCH 30.9 (27.7-33.6) pg MCHC 32.0 L (32.2-35.4) g/dL RDW 14.1 (11.5-15.5) % Plt Count 551 H (125-369) X10(3)uL MPV 8.2 (7.4-10.4) fL Add Manual Diff Yes Neutrophils % (Manual) 73 (46-82) % Lymphocytes % (Manual) 18 (13-37) % Monocytes % (Manual) 6 (4-12) % Eosinophils % (Manual) 2 (0-5) % Basophils % (Manual) 1 (0-2) % D-Dimer, Quantitative 1.17 H (0.0-0.59) mg/LFEU Sodium 141 (135-145) mmol/L Potassium 4.1 (3.5-5.3) mmol/L Chloride 104 (100-110) mmol/L Carbon Dioxide 28 (21-32) mmol/L BUN 23 H (7-18) mg/dL Creatinine 1.3 H (0.55-1.02) mg/dL Est Cr Clr Drug Dosing TNP Estimated GFR (MDRD) 45 L (>60) BUN/Creatinine Ratio 17.7 (9-20) Glucose 88 (80-116) mg/dL POC Glucose (80-116) mg/dL Lactic Acid (0.4-2.0) mmol/L Calcium 8.2 L (8.6-10.2) mg/dL Total Bilirubin 0.2 (0.1-1.3) mg/dL AST 25 D (5-25) IU/L ALT 30 D (12-36) U/L Alkaline Phosphatase 69 (56-112) IU/L Troponin I (4.0-60.3) pg/mL C-Reactive Protein (0.5-0.9) mg/dL Total Protein 7.0 (6.0-8.0) g/dL Albumin 3.4 L (3.5-5.2) g/dL Globulin 3.6 g/dL Albumin/Globulin Ratio 0.9 Urine Color (YELLOW) Urine Appearance (CLEAR) Urine pH (5.0-6.5) Ur Specific Moss (1.010-1.025) Urine Protein (NEGATIVE) mg/dL Urine Glucose (UA) (NORMAL) mg/dL Urine Ketones (NEGATIVE) mg/dL Urine Occult Blood (NEGATIVE) Urine Nitrite (NEGATIVE) Urine Bilirubin (NEGATIVE) Urine Urobilinogen (NEGATIVE) mg/dL Ur Leukocyte Esterase (NEGATIVE) Urine RBC (0-5) Urine WBC (0-5) Ur Squamous Epith Cells (NS,R,O) Urine Bacteria (NS) 12/06/19 12/06/19 12/06/19 Range/Units 01:12 01:12 01:12 WBC (4.5-12.0) X10-3/uL RBC (3.23-5.20) x10(6)uL Hgb (11.5-15.5) g/dL Hct (30.0-51.3) % MCV (80-96) fL MCH (27.7-33.6) pg MCHC (32.2-35.4) g/dL RDW (11.5-15.5) % Plt Count (125-369) X10(3)uL MPV (7.4-10.4) fL Add Manual Diff Neutrophils % (Manual) (46-82) % Lymphocytes % (Manual) (13-37) % Monocytes % (Manual) (4-12) % Eosinophils % (Manual) (0-5) % Basophils % (Manual) (0-2) % D-Dimer, Quantitative (0.0-0.59) mg/LFEU Sodium (135-145) mmol/L Potassium (3.5-5.3) mmol/L Chloride (100-110) mmol/L Carbon Dioxide (21-32) mmol/L BUN (7-18) mg/dL Creatinine (0.55-1.02) mg/dL Est Cr Clr Drug Dosing Estimated GFR (MDRD) (>60) BUN/Creatinine Ratio (9-20) Glucose (80-116) mg/dL POC Glucose (80-116) mg/dL Lactic Acid 1.5 (0.4-2.0) mmol/L Calcium (8.6-10.2) mg/dL Total Bilirubin (0.1-1.3) mg/dL AST (5-25) IU/L ALT (12-36) U/L Alkaline Phosphatase (56-112) IU/L Troponin I 4.2 (4.0-60.3) pg/mL C-Reactive Protein 0.8 (0.5-0.9) mg/dL Total Protein (6.0-8.0) g/dL Albumin (3.5-5.2) g/dL Globulin g/dL Albumin/Globulin Ratio Urine Color (YELLOW) Urine Appearance (CLEAR) Urine pH (5.0-6.5) Ur Specific Moss (1.010-1.025) Urine Protein (NEGATIVE) mg/dL Urine Glucose (UA) (NORMAL) mg/dL Urine Ketones (NEGATIVE) mg/dL Urine Occult Blood (NEGATIVE) Urine Nitrite (NEGATIVE) Urine Bilirubin (NEGATIVE) Urine Urobilinogen (NEGATIVE) mg/dL Ur Leukocyte Esterase (NEGATIVE) Urine RBC (0-5) Urine WBC (0-5) Ur Squamous Epith Cells (NS,R,O) Urine Bacteria (NS) 12/06/19 12/06/19 12/06/19 Range/Units 02:07 05:15 05:17 WBC 27.9 H (4.5-12.0) X10-3/uL RBC 4.03 (3.23-5.20) x10(6)uL Hgb 12.6 (11.5-15.5) g/dL Hct 39.3 (30.0-51.3) % MCV 97.4 H (80-96) fL MCH 31.3 (27.7-33.6) pg MCHC 32.1 L (32.2-35.4) g/dL RDW 14.3 (11.5-15.5) % Plt Count 497 H (125-369) X10(3)uL MPV 8.1 (7.4-10.4) fL Add Manual Diff Yes Neutrophils % (Manual) 63 (46-82) % Lymphocytes % (Manual) 31 (13-37) % Monocytes % (Manual) 6 (4-12) % Eosinophils % (Manual) (0-5) % Basophils % (Manual) (0-2) % D-Dimer, Quantitative (0.0-0.59) mg/LFEU Sodium (135-145) mmol/L Potassium (3.5-5.3) mmol/L Chloride (100-110) mmol/L Carbon Dioxide (21-32) mmol/L BUN (7-18) mg/dL Creatinine (0.55-1.02) mg/dL Est Cr Clr Drug Dosing Estimated GFR (MDRD) (>60) BUN/Creatinine Ratio (9-20) Glucose (80-116) mg/dL POC Glucose 166 H (80-116) mg/dL Lactic Acid (0.4-2.0) mmol/L Calcium (8.6-10.2) mg/dL Total Bilirubin (0.1-1.3) mg/dL AST (5-25) IU/L ALT (12-36) U/L Alkaline Phosphatase (56-112) IU/L Troponin I (4.0-60.3) pg/mL C-Reactive Protein (0.5-0.9) mg/dL Total Protein (6.0-8.0) g/dL Albumin (3.5-5.2) g/dL Globulin g/dL Albumin/Globulin Ratio Urine Color Yellow (YELLOW) Urine Appearance Cloudy (CLEAR) Urine pH 5.0 (5.0-6.5) Ur Specific Moss 1.025 (1.010-1.025) Urine Protein Trace (NEGATIVE) mg/dL Urine Glucose (UA) Normal (NORMAL) mg/dL Urine Ketones 15 H (NEGATIVE) mg/dL Urine Occult Blood Negative (NEGATIVE) Urine Nitrite Positive H (NEGATIVE) Urine Bilirubin Small H (NEGATIVE) Urine Urobilinogen 1 H (NEGATIVE) mg/dL Ur Leukocyte Esterase Moderate H (NEGATIVE) Urine RBC 0-5 (0-5) Urine WBC 5-10 H (0-5) Ur Squamous Epith Cells Moderate H (NS,R,O) Urine Bacteria Many H (NS) Result Diagrams: 12/06/19 05:15 12/06/19 01:12 EKG INTERPRETATION Rhythm: NSR Sepsis Event Note - Evaluation Sepsis Screening Result: No Definite Risk - Focused Exam Vital Signs: Vital Signs Temp Pulse Pulse Resp BP BP Pulse Ox 12/06/19 07:50 97.7 F 85 24 H 83/60 L 95 12/06/19 03:30 84 13 115/80 95 12/06/19 03:15 84 14 98/58 L 97 12/06/19 03:09 96 12/06/19 03:00 87 18 85/47 L 97 12/06/19 02:45 88 13 101/57 L 88 L 12/06/19 02:30 92 22 H 129/101 H 90 L 12/06/19 02:15 87 14 85/54 L 90 L 12/06/19 02:05 12/06/19 01:45 86 13 94/49 L 96 12/06/19 01:30 88 12 98/56 L 96 12/06/19 01:15 93 15 85/56 L 96 12/06/19 01:10 97.4 F 96 16 90/57 L 92 L 12/06/19 01:00 Pulse Ox 12/06/19 07:50 12/06/19 03:30 12/06/19 03:15 05/18/20 03:09 12/06/19 03:00 12/06/19 02:45 87 L 12/06/19 02:30 93 L 12/06/19 02:15 12/06/19 02:05 98 12/06/19 01:45 12/06/19 01:30 12/06/19 01:15 12/06/19 01:10 12/06/19 01:00 88 L Date Exam was Performed: 12/06/19 Time Exam was Performed: 08:52 - Problem List (1) Hypoxia SNOMED Code(s): 667596397 ICD Code: R09.02 - HYPOXEMIA Status: Acute Current Visit: Yes (2) Hypotension SNOMED Code(s): 68969891 ICD Code: I95.9 - HYPOTENSION, UNSPECIFIED Status: Acute Current Visit: Yes Qualifiers: Hypotension type: idiopathic hypotension Qualified Code(s): I95.0 - Idiopathic hypotension (3) KIM (generalized anxiety disorder) SNOMED Code(s): 54536235 ICD Code: F41.1 - GENERALIZED ANXIETY DISORDER Status: Acute Current Visit: Yes (4) Leucocytosis SNOMED Code(s): 982934715, 361881951 ICD Code: D72.829 - ELEVATED WHITE BLOOD CELL COUNT, UNSPECIFIED Status: Acute Current Visit: Yes (5) Bacteriuria SNOMED Code(s): 97184628 ICD Code: R82.71 - BACTERIURIA Status: Acute Current Visit: Yes (6) Abdominal pain, chronic, generalized SNOMED Code(s): 509808800 ICD Code: R10.84 - GENERALIZED ABDOMINAL PAIN; G89.29 - OTHER CHRONIC PAIN Status: Acute Current Visit: Yes Problem Details: chronic abdominal pain post op extensive abdominal surgery, she takes hydrocodone 10/325 at home (7) Hypoglycemia SNOMED Code(s): 115188781 ICD Code: E16.2 - HYPOGLYCEMIA, UNSPECIFIED Status: Acute Current Visit: Yes Problem Details: patient remains lethargic, and will be admitted to Observation (8) Hx of pulmonary embolus SNOMED Code(s): 745515414 ICD Code: Z86.711 - PERSONAL HISTORY OF PULMONARY EMBOLISM Status: Acute Current Visit: Yes Problem List Initiated/Reviewed/Updated: Yes Orders Last 24hrs: Active Orders 24 hr Category Date Time Status Patient Status [ADT] Routine ADT 12/06/19 03:09 Active Ambulate [RC] PER UNIT ROUTINE Care 12/06/19 03:09 Active Antiembolic Devices [RC] .Routine Care 12/06/19 03:09 Active Bedrest Bedside Commode [RC] ASDIRECTED Care 12/06/19 03:09 Active Blood Glucose Check, Bedside [RC] 07,11,17,21 Care 12/06/19 03:09 Active Intake and Output [RC] 06,14,22 Care 12/06/19 03:09 Active Oxygen Therapy [RC] ASDIRECTED Care 12/06/19 05:09 Active Pulse Oximetry [RC] PRN Care 12/06/19 03:09 Active Telemetry Monitoring [Cardiac Monitoring] [RC] 08,16,00 Care 12/06/19 03:09 Active VTE/DVT Education [RC] Click to Edit Care 12/06/19 03:09 Active Vital Signs [RC] 08,12,16,20,00,04 Care 12/06/19 03:09 Active Clear Liquid Diet [DIET] Diet 12/06/19 Breakfast Active Consistent Carbohydrate Diet [DIET] Diet 12/06/19 Lunch Ordered Abdomen Pelvis wo Cont [CT] Routine Exams 12/06/19 08:47 Ordered Chest 1V Frontal [CR] Stat Exams 12/06/19 02:43 Taken Chest w Cont [CT] Routine Exams 12/06/19 08:47 Ordered CBC WITH AUTO DIFF [HEME] AM Lab 12/07/19 05:11 Ordered COMPREHENSIVE METABOLIC PN,CMP [CHEM] AM Lab 12/07/19 05:11 Ordered CORONAVIRUS COVID-19 PCR PHL Urgent Lab 12/06/19 08:47 Ordered CULTURE BLOOD [BC] Urgent Lab 12/06/19 07:00 Received CULTURE BLOOD [BC] Urgent Lab 12/06/19 07:10 Received PRO B-TYPE NATRIUR PEPT,BNPPRO [CHEM] DAILY Lab 12/06/19 09:00 Ordered TROPONIN I [CHEM] Routine Lab 12/06/19 08:49 Ordered ALPRAZolam [Xanax] Med 12/06/19 09:00 Ordered 1 mg PO QID Acetaminophen/HYDROcodone [Prospect 325-10 MG] Med 12/06/19 08:50 Ordered 1 each PO QID PRN Aspirin [Halfprin] Med 12/06/19 09:00 Ordered 81 mg PO DAILY Cyclobenzaprine [Flexeril] Med 12/06/19 09:00 Ordered 10 mg PO BID Escitalopram [Lexapro] Med 12/06/19 09:00 Ordered 20 mg PO DAILY Gabapentin [Neurontin] Med 12/06/19 09:00 Ordered 300 mg PO TID Ketorolac [Toradol] Med 12/06/19 08:47 Ordered 30 mg IVPUSH Q6H PRN Omeprazole [Omeprazole] Med 12/06/19 09:00 Ordered 20 mg PO DAILY Sodium Chloride 0.9% [Normal Saline] 1,000 ml Med 12/06/19 09:00 Ordered IV ASDIRECTED Sodium Chloride 0.9% [Saline Flush] Med 12/06/19 01:14 Active 10 ml FLUSH ASDIRECTED PRN atorvaSTATin [Lipitor] Med 12/06/19 21:00 Ordered 10 mg PO BEDTIME cefTRIAXone [Rocephin] Med 12/06/19 09:00 Ordered 1 gm IVPUSH Q24H Blood Culture x2 Reflex Set [OM.PC] Urgent Oth 12/06/19 06:43 Ordered DVT/VTE Prophylaxis Reflex [OM.PC] Per Unit Routine Oth 12/06/19 03:09 Ordered Peripheral IV Insertion Adult [OM.PC] Routine Oth 12/06/19 01:14 Ordered Resuscitation Status Routine Resus Stat 12/06/19 02:46 Ordered EKG 12 Lead [EK] Routine Ther 12/06/19 01:14 Ordered Medication Orders Hydrocodone Bitart/Acetaminophen (Prospect 325-10 Mg) tab PO QID PRN PRN Reason: Pain Alprazolam (Xanax) 1 mg PO QID LAURA Aspirin (Halfprin) 81 mg PO DAILY LAURA Atorvastatin Calcium (Lipitor) 10 mg PO BEDTIME LAURA Ceftriaxone Sodium (Rocephin) 1 gm IVPUSH Q24H LAURA Cyclobenzaprine HCl (Flexeril) 10 mg PO BID LAURA Escitalopram Oxalate (Lexapro) 20 mg PO DAILY LAURA Gabapentin (Neurontin) 300 mg PO TID LAURA Sodium Chloride (Normal Saline) 1,000 mls @ 999 mls/hr IV ASDIRECTED LAURA Ketorolac Tromethamine (Toradol) 30 mg IVPUSH Q6H PRN PRN Reason: Pain Stop: 12/11/19 08:47 Non-Formulary Medication (Omeprazole [Omeprazole]) 20 mg PO DAILY LAURA Sodium Chloride (Saline Flush) 10 ml FLUSH ASDIRECTED PRN PRN Reason: Keep Vein Open Assessment/Plan Comment:: I will start aggressive fluid replacement with crystalloids. I will use ketorolac for pain at this time. I have elected to start empirical Rocephin, given a high white blood cell count and bacteria in urine. Obtain blood cultures , PAYTON-COV 2 testing,along with a CT of the chest and abdomen/ pelvis. Hold off all Insulin at this time.
[2019-12-06] MEDS ORDERED: cefTRIAXone 1 GM Vial IVPUSH SCH (09:00)
[2019-12-06] MEDS ORDERED: Aspirin 81 MG Tab.EC PO SCH (09:00)
[2019-12-06] MEDS ORDERED: ALPRAZolam 1 MG Tab PO SCH (09:00)
[2019-12-06] MEDS ORDERED: Sodium Chloride 0.9% 1,000 ML IV SCH (09:00)
[2019-12-06] MEDS ORDERED: Pantoprazole 40 MG Tab.CR PO SCH (09:00)
[2019-12-06] MEDS ORDERED: ALPRAZolam 1 MG Tab PO PRN (09:42)
[2019-12-06] MEDS ORDERED: Enoxaparin 40 MG/0.4 ML Syringe SUBCUT SCH (10:00)
[2019-12-06] MEDS ORDERED: Escitalopram 10 MG Tab PO SCH (10:00)
[2019-12-06] MEDS: Gabapentin 300 MG Cap PO SCH ×3 (10:08→20:38)
[2019-12-06] MEDS: Cyclobenzaprine 10 MG Tab PO SCH ×2 (10:09→20:38)
--- NOTE | 2019-12-06 10:59 | PCM.SN.2 ---
- Free Text/Narrative Note: [facility] Date: 12/06/2019 Time: 1005 to 1025 Dx: Hypoglycemia, Hypoxia and Poor Vascular Access. Rx: Obtain Peripheral Vascular Access. Procedure: Placement of Peripheral Vascular Catheter I was called by the floor RN requesting new peripheral vascular access. This patient is awaiting the results of a COVID 19 test. All proper PPE was used including a N-95 mask. She currently has a #18 G. IV in her left ACF. I found a vein on her left anterior distal forearm and prepped the area with 3 alcohol wipes. I applied a skin "freezing" spray to the area. I then inserted and advanced X 1 attempt without difficulty a BD [employer] BC Winged 20 Ga. X 1.16 IN. Catheter. It was flushed with 10 ml's of normal saline without difficulty and an Op-Site type dressing was applied. She tolerated this procedure well. ANTO Luna CRNA
[2019-12-06] MEDS: Sodium Chloride 0.9% 1,000 ML IV SCH ×2 (11:29→18:00)
--- NOTE | 2019-12-06 11:43 | CR ---
INDICATION: History of pneumonia two weeks ago. CHEST, ONE VIEW: AP portable upright view of the chest 12/06/19 was compared with 09/15/19 and revealed no definite consolidating pneumonia or effusion. The heart did not appear grossly enlarged. Evidence of exogenous obesity is noted. Overlying EKG leads are noted. IMPRESSION: No acute process. MTDD
[2019-12-06] MEDS ORDERED: Iopamidol 755 Mg/ML 100 ML Bottle IV ONE (13:15)
[2019-12-06] MEDS ORDERED: atorvaSTATin 10 MG Tab PO SCH (21:00)
[2019-12-06] MEDS ORDERED: Insulin Glargine,Human Rec. Analog 100 Units/ML 3 ML Pen SUBCUT SCH (22:15)
[2019-12-07] MEDS: Sodium Chloride 0.9% 1,000 ML IV SCH (00:45)
--- NOTE | 2019-12-07 16:50 | DISCH ---
DISCHARGE DATE: 12/07/2019 REASON FOR ADMISSION: 1. Hypoglycemic episode. 2. Leukocytosis. 3. Bacteriuria. 4. Obesity. 5. Chronic pain. 6. History of pulmonary embolism. DISCHARGE DIAGNOSES: 1. Hypoglycemic episode. 2. Leukocytosis. 3. Bacteriuria. 4. Obesity. 5. Chronic pain. 6. History of pulmonary embolism. BRIEF HISTORY: This is a 39-year-old female who was brought into the ER unresponsive with a blood glucose in the 50s. She was given D5, was noted to have leukocytosis. She also was hypoxic intermittently in the hospital stay. Initial lab work showed white cell count 20,000 and urine that was positive for nitrites and white cells. COVID test was negative. She got some Rocephin and some fluids. CT of the chest, abdomen, and pelvis was negative essentially. I will discharge her home today on cephalexin 500 mg 3 times a day for 5 days. She will go home on regular medications and follow up with her PCP in 2 to 3 days. I spent more than 35 minutes in the discharge of the patient. /[id number] ALBERTA/JACK
== END 2019-12-07 09:57 | disposition home or self-care (01) ==
LOC: FB.ED 00:56 → FB.MS 02:54
PROVIDERS: ADMIT Family Medicine; ATTEND Family Medicine
DX: E10.649 Type 1 diabetes mellitus with hypoglycemia without coma (principal); R82.71 Bacteriuria; E66.9 Obesity, unspecified; G89.29 Other chronic pain; D72.829 Elevated white blood cell count, unspecified; I95.9 Hypotension, unspecified; R09.02 Hypoxemia; F41.1 Generalized anxiety disorder; R10.84 Generalized abdominal pain; K21.9 Gastro-esophageal reflux disease without esophagitis; Z86.711 Personal history of pulmonary embolism; Z88.5 Allergy status to narcotic agent; Z79.82 Long term (current) use of aspirin; Z79.899 Other long term (current) drug therapy; Z68.41 Body mass index [BMI] 40.0-44.9, adult
CPT/HCPCS: 36415; 36569; 71045; 71260; 74177; 80053; 81001; 82962; 83605; 83880; 84484; 85025; 85379; 86140; 87040; 87086; 87088; 87186; 87635; 93005; 96361; 96374; 99285; A9270; J0696; J1650; J1815; J2405; J7030; J7121; Q9967; U0002

== ENCOUNTER 2019-12-15 21:17 | Observation (INO) | payer MEDICAID, OTHER ==
--- NOTE | 2019-12-15 21:29 | EDM.PDOC ---
ED HPI GENERAL MEDICAL PROBLEM - General Stated Complaint: LOW BLOOD SUGAR Time Seen by Provider: 12/15/19 21:28 Source of Information: Reports: Patient History Limitations: Reports: Altered Mental Status - History of Present Illness INITIAL COMMENTS - FREE TEXT/NARRATIVE: 39-year-old female who reports that between 4:30 and 5 PM today she was at the [employer] store with her son and was shopping and noticed that her balance was off and she began to stumble into things. She had been quite active before this and they continued to shop and went to [facility] where she noticed that she seemed to be dozing off and felt "out of it" this was between 5:30 to 6 PM. She went home after this and found that her blood sugar was 75. She drinks some orange juice then her significant other brought Lenora Max home with a blizzard and she ate this and still seemed to be somewhat lethargic even though her repeat blood sugar was in the 130 range. Her significant other is a supervisor locomotive with the ambulance service and he was on a run at the time and called one of his associates to go to their house to check her via ambulance and EMS personnel found that her blood sugar was in the 130 range and she seemed to be out of it. She had taken her insulin earlier and had taken 35 units instead of 25 units of her NovoLog. She has had no nausea or vomiting. She had reportedly been eating and drinking normally prior to this today. She had also reportedly had normal mental status and normal activity level prior to all this beginning. It should be noted that approximately 8 days ago, she had similar presentation to the emergency department with low blood sugar at that time, altered mental status and hypoxia and also had hypotension which eventually showed up to be with an acute kidney injury and a UTI and was admitted with IV fluid hydration, empiric antibiotic therapy and careful monitoring of her blood sugars. The following day she had a CT scan of her chest, abdomen and pelvis which was essentially unremarkable and she improved minimally, her blood pressure and blood sugars stabilized and she was taken oral well and she was discharged. She has really had no more problems until this afternoon and tonight. She reports pain in her right lower abdomen that is a chronic type pain. She reports that pain is a dull any that she rates as 7/10. This is the level it has typically been in the past. No reported fevers or chills. No cough. No feelings of shortness of breath at this time. She does take pain medication and anxiety medication and reports that she has not been over taking this and taking it as directed. There are no other associated signs or symptoms. There are no other modifying factors. 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: Reports: Other (see below) (As above) Upper Abdomen Pain Score (Numeric/FACES): 7 - Related Data Allergies Allergy/AdvReac Type Severity Reaction Status Date / Time codeine Allergy Rash Verified 12/06/19 01:23 Home Meds: Home Meds ALPRAZolam [Alprazolam] 1 mg PO QID 08/09/18 [History] Aspirin [Halfprin] 81 mg PO DAILY 08/09/18 [History] Cyclobenzaprine [Flexeril] 10 mg PO BID 08/09/18 [History] Escitalopram [Lexapro] 30 mg PO DAILY 08/09/18 [History] Gabapentin [Neurontin] 300 mg PO TID 08/09/18 [History] Hydrocodone/Acetaminophen [Hydrocodon-Acetaminophn 10-325] 1 each PO QID PRN [History] Omeprazole 20 mg PO DAILY 08/09/18 [History] Insulin Aspart [NovoLOG] 22 unit SQ TID 10/30/19 [History] Insulin Glargine,Hum.Rec.Anlog [Lantus Solostar] 62 units SQ BEDTIME 10/30/19 [ History] atorvaSTATin [Lipitor] 10 mg PO DAILY 10/30/19 [History] Insulin Aspart [NovoLOG] 1 - 12 unit SQ WITHMEALSANDBED PRN 12/06/19 [History] Past Medical History HEENT History: Reports: Impaired Vision, Other (See Below) Other HEENT History: Contact lens bilaterally. Cardiovascular History: Reports: SOB on Exertion, Other (See Below) Other Cardiovascular History: hx peracardialcentesis Respiratory History: Reports: PE, Pneumothorax, Other (See Below) Other Respiratory History: Hx: Respiratory distress, hx thoracentesis, hx former trach, Pneumonia Gastrointestinal History: Reports: GERD, Pancreatitis, Other (See Below) Other Gastrointestinal History: Nectrotizing pancreatitis. 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, R shoulder, R brain - Infectious Disease History Infectious Disease History: Reports: Chicken Pox - Past Surgical History Respiratory Surgical History: Reports: Thoracentesis, Tracheostomy GI Surgical History: Reports: Cholecystectomy, EGD, Other (See Below) Other GI Surgeries/Procedures: Spleenectomy, exp lap, numerous abd surgeries, partial removal of pancreas & stomach Female Surgical History: Reports: Lithotripsy/ESWL, Ureteral Stent Neurological Surgical History: Reports: Other (See Below) Other Neurological Surgeries/Procedures: brain surgery for clear cell carcinoma Musculoskeletal Surgical History: Reports: Other (See Below) Other Musculoskeletal Surgeries/Procedures:: R elbow surgery, hx ulnar nerve damage Dermatological Surgical History: Reports: Skin Graft Social & Family History - Tobacco Use Smoking Status *Q: Never Smoker - Caffeine Use Caffeine Use: Reports: Coffee, Energy Drinks, Soda, Tea Other Caffeine Use: Energy drinks 2/week, Coffee - Alcohol Use Alcohol Use History: No - Recreational Drug Use Recreational Drug Use: No - Living Situation & Occupation Living situation: Reports: with Significant Other Social History Comment: Has a service dog. ED ROS GENERAL - Review of Systems Review Of Systems: See Below Constitutional: Reports: Malaise, Weakness, Fatigue HEENT: Reports: Other (Dry mouth) Respiratory: Reports: No Symptoms Cardiovascular: Reports: No Symptoms Endocrine: Reports: Low Glucose GI/Abdominal: Reports: Abdominal Pain (Chronic). Denies: Nausea, Vomiting : Reports: No Symptoms Musculoskeletal: Reports: No Symptoms Skin: Reports: No Symptoms Neurological: Reports: Confusion (Altered mental status. Lethargic and tending to fall asleep), Weakness Hematologic/Lymphatic: Reports: No Symptoms Immunologic: Reports: No Symptoms - Physical Exam Exam: See Below Exam Limited By: No Limitations General Appearance: Lethargic, Obese, Other (Conversant with somewhat slurred speech and "somewhat drugged appearance".) Eye Exam: Bilateral Eye: EOMI, Normal Inspection, PERRL Ears: Normal External Exam, Hearing Grossly Normal Nose: Normal Inspection, Normal Mucosa, No Blood Throat/Mouth: Normal Voice, No Airway Compromise, Other (Dry mucous membranes) Head Exam: Atraumatic, Normocephalic Neck: Normal Inspection, Supple, Non-Tender, Full Range of Motion Respiratory/Chest: No Respiratory Distress, Lungs Clear, Normal Breath Sounds, No Accessory Muscle Use, Chest Non-Tender Cardiovascular: Normal Peripheral Pulses, Regular Rate, Rhythm, No Murmur GI/Abdominal: Normal Bowel Sounds, Soft, Non-Tender Neuro Exam (Abbreviated): Oriented, CN II-XII Intact, Normal Cognition, No Motor /Sensory Deficits, Slow to Respond Back Exam: Normal Inspection, Full Range of Motion Extremities: Normal Inspection, Normal Range of Motion, Non-Tender, No Pedal Edema, Normal Capillary Refill Skin Exam: Warm, Dry, Intact, Normal Color, No Rash EKG INTERPRETATION EKG Date: 12/15/19 Time: 22:20 Rhythm: NSR Rate (Beats/Min): 92 [place]: Normal P-Wave: Present QRS: Normal ST-T: Normal QT: Normal Comparison: No Change (No change from EKG performed on 12/06/2019.) Course - Vital Signs Last Recorded V/S: Last Vital Signs Temp 36.6 C 12/15/19 21:34 Pulse 80 12/15/19 21:34 Resp 20 12/15/19 21:34 BP 119/49 L 12/15/19 21:34 Pulse Ox - Orders/Labs/Meds Orders: Active Orders 24 hr Category Date Time Status Admission Status [Patient Status] [ADT] Routine ADT 12/15/19 23:27 Active Accu Check [Blood Glucose Check, Bedside] [RC] ONETIME Care 12/15/19 22:27 Active Blood Glucose Check, Bedside [RC] ASDIRECTED Care 12/15/19 23:29 Active Cardiac Monitoring [RC] .As Directed Care 12/15/19 23:27 Active EKG Documentation Completion [RC] ASDIRECTED Care 12/15/19 21:56 Active Intake and Output [RC] QSHIFT Care 12/15/19 23:30 Active Oxygen Therapy [RC] PRN Care 12/15/19 23:30 Active Pulse Oximetry [RC] CONTINUOUS Care 12/15/19 23:30 Active Up With Assistance [RC] ASDIRECTED Care 12/15/19 23:29 Active VTE/DVT Education [RC] Per Unit Routine Care 12/15/19 23:30 Active Vital Signs [RC] Q4H Care 12/15/19 23:30 Active Consistent Carbohydrate Diet [DIET] Diet 12/15/19 Dinner Active Chest 1V Frontal [CR] Stat Exams 12/15/19 22:56 Taken Head wo Cont [CT] Stat Exams 12/15/19 23:31 Ordered BASIC METABOLIC PANEL,BMP [CHEM] AM Lab 12/16/19 05:11 Ordered CBC WITH AUTO DIFF [HEME] AM Lab 12/16/19 05:11 Ordered CULTURE BLOOD [BC] Urgent Lab 12/15/19 23:35 Received CULTURE BLOOD [BC] Urgent Lab 12/15/19 23:40 Received CULTURE URINE [RM] Stat Lab 12/15/19 22:18 Received LACTATE SEPSIS W/ REFLEX [CHEM] Stat Lab 12/15/19 23:35 Received Acetaminophen [Tylenol] Med 12/15/19 23:29 Active 650 mg PO Q4H PRN Ondansetron [Zofran] Med 12/15/19 23:29 Active 4 mg IV Q6H PRN Sodium Chloride 0.9% [Normal Saline] 1,000 ml Med 12/15/19 22:00 Active IV ASDIRECTED Sodium Chloride 0.9% [Saline Flush] Med 12/15/19 21:55 Active 10 ml FLUSH ASDIRECTED PRN Blood Culture x2 Reflex Set [OM.PC] Urgent Oth 12/15/19 23:22 Ordered Peripheral IV Insertion Adult [OM.PC] Routine Oth 12/15/19 21:55 Ordered Resuscitation Status Routine Resus Stat 12/15/19 23:29 Ordered EKG 12 Lead [EK] Routine Ther 12/15/19 21:55 Ordered Medication Orders Acetaminophen (Tylenol) 650 mg PO Q4H PRN PRN Reason: Pain (Mild 1-3)/fever Sodium Chloride (Normal Saline) 1,000 mls @ 125 mls/hr IV ASDIRECTED LAURA Last Admin: 12/15/19 22:43 Dose: 999 mls/hr Piperacillin Sod/Tazobactam (Sod 3.375 gm/ Sodium Chloride) 50 mls @ 100 mls/ hr IV Q6H LAURA Vancomycin HCl 1.25 gm/ Sodium (Chloride) 250 mls @ 166.667 mls/hr IV Q12H LAURA Ondansetron HCl (Zofran) 4 mg IV Q6H PRN PRN Reason: Nausea/Vomiting Saccharomyces Boulardii (Florastor) 250 mg PO BID [facility] Sodium Chloride (Saline Flush) 10 ml FLUSH ASDIRECTED PRN PRN Reason: Keep Vein Open Vancomycin HCl (Pharmacy To Dose - Vancomycin) 1 dose .XX ONETIME ONE Stop: 12/15/19 23:36 Labs: Laboratory Tests 12/15/19 12/15/19 12/15/19 Range/Units 21:20 22:10 22:10 WBC 21.3 H (4.5-12.0) X10-3/uL RBC 4.09 (3.23-5.20) x10(6)uL Hgb 12.4 (11.5-15.5) g/dL Hct 39.2 (30.0-51.3) % MCV 95.7 (80-96) fL MCH 30.2 (27.7-33.6) pg MCHC 31.5 L (32.2-35.4) g/dL RDW 14.2 (11.5-15.5) % Plt Count 478 H (125-369) X10(3)uL MPV 8.2 (7.4-10.4) fL Add Manual Diff Yes Neutrophils % (Manual) 37 L (46-82) % Lymphocytes % (Manual) 48 H (13-37) % Monocytes % (Manual) 9 (4-12) % Eosinophils % (Manual) 6 H (0-5) % POC VBG pH 7.36 (7.31-7.41) POC VBG pCO2 39.4 L (41-51) mmHG POC VBG HCO3 22.4 L (23-28) mmol/L POC VBG Total CO2 24 (24-29) mmol/L POC VBG Base Excess -3 L (-2-3) mmol/L Sodium 137 (135-145) mmol/L Potassium 4.3 (3.5-5.3) mmol/L Chloride 103 (100-110) mmol/L Carbon Dioxide 26 (21-32) mmol/L BUN 22 H D (7-18) mg/dL Creatinine 1.4 H (0.55-1.02) mg/dL Est Cr Clr Drug Dosing 38.37 mL/min Estimated GFR (MDRD) 42 L (>60) BUN/Creatinine Ratio 15.7 (9-20) Glucose 197 H (80-116) mg/dL Calcium 9.1 (8.6-10.2) mg/dL Magnesium 1.7 L (1.8-2.5) mg/dL Total Bilirubin 0.3 (0.1-1.3) mg/dL AST 21 D (5-25) IU/L ALT 29 D (12-36) U/L Alkaline Phosphatase 73 (56-112) IU/L C-Reactive Protein (0.5-0.9) mg/dL Total Protein 7.4 (6.0-8.0) g/dL Albumin 3.7 (3.5-5.2) g/dL Globulin 3.7 g/dL Albumin/Globulin Ratio 1.0 Urine Color (YELLOW) Urine Appearance (CLEAR) Urine pH (5.0-6.5) Ur Specific Dan[place] (1.010-1.025) Urine Protein (NEGATIVE) mg/dL Urine Glucose (UA) (NORMAL) mg/dL Urine Ketones (NEGATIVE) mg/dL Urine Occult Blood (NEGATIVE) Urine Nitrite (NEGATIVE) Urine Bilirubin (NEGATIVE) Urine Urobilinogen (NEGATIVE) mg/dL Ur Leukocyte Esterase (NEGATIVE) Urine RBC (0-5) Urine WBC (0-5) Ur Squamous Epith Cells (NS,R,O) Urine Bacteria (NS) Urine Opiates Screen (NEGATIVE) Ur Oxycodone Screen (NEGATIVE) Ur Propoxyphene Screen (NEGATIVE) Ur Barbituates Screen (NEGATIVE) Ur Tricyclics Screen (NEGATIVE) Ur Phencyclidine Scrn (NEGATIVE) Ur Amphetamine Screen (NEGATIVE) Urine MDMA Screen (NEGATIVE) U Benzodiazepines Scrn (NEGATIVE) U Cocaine Metab Screen (NEGATIVE) U Marijuana (THC) Screen (NEGATIVE) 12/15/19 12/15/19 12/15/19 Range/Units 22:10 22:18 22:18 WBC (4.5-12.0) X10-3/uL RBC (3.23-5.20) x10(6)uL Hgb (11.5-15.5) g/dL Hct (30.0-51.3) % MCV (80-96) fL MCH (27.7-33.6) pg MCHC (32.2-35.4) g/dL RDW (11.5-15.5) % Plt Count (125-369) X10(3)uL MPV (7.4-10.4) fL Add Manual Diff Neutrophils % (Manual) (46-82) % Lymphocytes % (Manual) (13-37) % Monocytes % (Manual) (4-12) % Eosinophils % (Manual) (0-5) % POC VBG pH (7.31-7.41) POC VBG pCO2 (41-51) mmHG POC VBG HCO3 (23-28) mmol/L POC VBG Total CO2 (24-29) mmol/L POC VBG Base Excess (-2-3) mmol/L Sodium (135-145) mmol/L Potassium (3.5-5.3) mmol/L Chloride (100-110) mmol/L Carbon Dioxide (21-32) mmol/L BUN (7-18) mg/dL Creatinine (0.55-1.02) mg/dL Est Cr Clr Drug Dosing mL/min Estimated GFR (MDRD) (>60) BUN/Creatinine Ratio (9-20) Glucose (80-116) mg/dL Calcium (8.6-10.2) mg/dL Magnesium (1.8-2.5) mg/dL Total Bilirubin (0.1-1.3) mg/dL AST (5-25) IU/L ALT (12-36) U/L Alkaline Phosphatase (56-112) IU/L C-Reactive Protein 1.8 H (0.5-0.9) mg/dL Total Protein (6.0-8.0) g/dL Albumin (3.5-5.2) g/dL Globulin g/dL Albumin/Globulin Ratio Urine Color Yellow (YELLOW) Urine Appearance Slightly cloudy (CLEAR) Urine pH 5.0 (5.0-6.5) Ur Specific [place] 1.025 (1.010-1.025) Urine Protein Trace (NEGATIVE) mg/dL Urine Glucose (UA) Normal (NORMAL) mg/dL Urine Ketones 15 H (NEGATIVE) mg/dL Urine Occult Blood Large H (NEGATIVE) Urine Nitrite Negative (NEGATIVE) Urine Bilirubin Small H (NEGATIVE) Urine Urobilinogen 1 H (NEGATIVE) mg/dL Ur Leukocyte Esterase Negative (NEGATIVE) Urine RBC 20-30 H (0-5) Urine WBC 5-10 H (0-5) Ur Squamous Epith Cells Rare (NS,R,O) Urine Bacteria Many H (NS) Urine Opiates Screen Positive H (NEGATIVE) Ur Oxycodone Screen Positive H (NEGATIVE) Ur Propoxyphene Screen Negative (NEGATIVE) Ur Barbituates Screen Negative (NEGATIVE) Ur Tricyclics Screen Positive H (NEGATIVE) Ur Phencyclidine Scrn Negative (NEGATIVE) Ur Amphetamine Screen Negative (NEGATIVE) Urine MDMA Screen Negative (NEGATIVE) U Benzodiazepines Scrn Positive H (NEGATIVE) U Cocaine Metab Screen Negative (NEGATIVE) U Marijuana (THC) Screen Negative (NEGATIVE) Meds: Medications Generic Name Dose Route Start Last Admin Trade Name Freq PRN Reason Stop Dose Admin Acetaminophen 650 mg 12/15/19 23:29 Tylenol PO Q4H PRN Pain (Mild 1-3)/fever Sodium Chloride 1,000 mls @ 125 mls/hr 12/15/19 22:00 12/15/19 22:43 Normal Saline IV 999 mls/hr ASDIRECTED LAURA Administration Piperacillin Sod/Tazobactam 50 mls @ 100 mls/hr 12/15/19 23:45 Sod 3.375 gm/ Sodium Chloride IV Q6H LAURA Vancomycin HCl 1.25 gm/ Sodium 250 mls @ 166.667 mls/hr 12/16/19 00:00 Chloride IV Q12H LAURA Ondansetron HCl 4 mg 12/15/19 23:29 Zofran IV Q6H PRN Nausea/Vomiting Saccharomyces Boulardii 250 mg 12/15/19 23:45 Florastor PO BID LAURA Sodium Chloride 10 ml 12/15/19 21:55 Saline Flush FLUSH ASDIRECTED PRN Keep Vein Open Vancomycin HCl 1 dose 12/15/19 23:35 Pharmacy To Dose - Vancomycin .XX 12/15/19 23:36 ONETIME ONE Discontinued Medications Generic Name Dose Route Start Last Admin Trade Name Freq PRN Reason Stop Dose Admin Dextrose/Water Confirm 12/15/19 21:41 12/15/19 21:42 Dextrose 50% In Water Administered 12/15/19 21:42 50 ml Dose Administration 50 ml .ROUTE .STK-MED ONE Sodium Chloride 500 mls @ 999 mls/hr 12/15/19 21:57 12/15/19 22:35 Normal Saline IV 12/15/19 22:27 999 mls/hr .BOLUS ONE Administration - Radiology Interpretation Free Text/Narrative:: Portable chest x-ray showed no acute disease. CT scan of head showed no acute abnormality per the [facility] radiologist. - Re-Assessments/Exams Free Text/Narrative Re-Assessment/Exam: 12/15/19 22:30: The patient's significant other is here. The patient still having slurred speech and sleepy. Her blood sugar is in the 160 range. Her O2 saturations are 90-92% on room air. He is in no respiratory distress. Her neurologic exam remains nonfocal and she is conversant and appropriate. Her blood pressure is in the 100 systolic range. Despite a normalization of her blood sugar, her encephalopathy is not cleared. Her lab tests again show an elevated white blood cell count. She also has an elevation in her creatinine. In addition, a urinalysis still shows some evidence of infection. I have ordered a chest x-ray to be performed. Because of her continued encephalopathy and these other associated findings, the patient will need admission with continued IV fluid hydration, close monitoring including serial blood sugar checks and continuous O2 sat monitoring for now. I will also order a CT scan of her head to rule out any acute intracranial abnormality that would cause her encephalopathy. I will also order blood cultures and a lactate (these were negative 8 days ago) and I will order Zosyn and vancomycin IV (secondary to her recent hospitalization) to cover for UTI. I have discussed admission with the patient and with the patient's significant other and they will be in agreement with the plan for admission to this facility. This will be pending the results of the CT scan of her head. If that is without any acute abnormality, the plan will be to admit the patient here with IV antibiotic therapy, IV fluid therapy and monitoring as described above. It is unclear at this point whether the patient will require more than a period of observation. I will place interim admission orders and care the patient will go to Dr. Rubalcava at 7 AM on 2019. 12/16/19 00:15: CT scan of head was negative. Patient has remained vitally and neurologically stable. She still lethargic. Admission as above. Orders have been placed. Departure - Departure Time of Disposition: 23:55 Disposition: Refer to Observation Condition: Fair Clinical Impression: Acute encephalopathy, Acute kidney injury UTI (urinary tract infection) Qualifiers: Urinary tract infection type: site unspecified Hematuria presence: with hematuria Qualified Code(s): N39.0 - Urinary tract infection, site not specified Diabetes mellitus type 1, uncontrolled Qualifiers: Glycemic state: with hypoglycemia Coma presence: unspecified whether coma present Qualified Code(s): E10.649 - Type 1 diabetes mellitus with hypoglycemia without coma - Discharge Information Sepsis Event Note - Focused Exam Vital Signs: Vital Signs Temp Pulse Resp BP 12/15/19 21:34 36.6 C 80 20 119/49 L Date Exam was Performed: 12/16/19 Time Exam was Performed: 00:14 - My Orders Last 24 Hours: My Active Orders 12/15/19 21:55 Sodium Chloride 0.9% [Saline Flush] 10 ml FLUSH ASDIRECTED PRN Peripheral IV Insertion Adult [OM.PC] Routine EKG 12 Lead [EK] Routine 12/15/19 21:56 EKG Documentation Completion [RC] ASDIRECTED 12/15/19 22:00 Sodium Chloride 0.9% [Normal Saline] 1,000 ml IV ASDIRECTED 12/15/19 22:18 CULTURE URINE [RM] Stat 12/15/19 22:27 Accu Check [Blood Glucose Check, Bedside] [RC] ONETIME 12/15/19 22:56 Chest 1V Frontal [CR] Stat 12/15/19 23:22 Blood Culture x2 Reflex Set [OM.PC] Urgent 12/15/19 23:27 Admission Status [Patient Status] [ADT] Routine Cardiac Monitoring [RC] .As Directed 12/15/19 23:29 Blood Glucose Check, Bedside [RC] ASDIRECTED Up With Assistance [RC] ASDIRECTED Acetaminophen [Tylenol] 650 mg PO Q4H PRN Ondansetron [Zofran] 4 mg IV Q6H PRN Resuscitation Status Routine 12/15/19 23:30 Intake and Output [RC] QSHIFT Oxygen Therapy [RC] PRN Pulse Oximetry [RC] CONTINUOUS VTE/DVT Education [RC] Per Unit Routine Vital Signs [RC] Q4H 12/15/19 23:31 Head wo Cont [CT] Stat 12/15/19 23:35 CULTURE BLOOD [BC] Urgent LACTATE SEPSIS W/ REFLEX [CHEM] Stat 12/15/19 23:40 CULTURE BLOOD [BC] Urgent 12/15/19 Dinner Consistent Carbohydrate Diet [DIET] 12/16/19 05:11 BASIC METABOLIC PANEL,BMP [CHEM] AM CBC WITH AUTO DIFF [HEME] AM - Assessment/Plan Last 24 Hours: My Active Orders 12/15/19 21:55 Sodium Chloride 0.9% [Saline Flush] 10 ml FLUSH ASDIRECTED PRN Peripheral IV Insertion Adult [OM.PC] Routine EKG 12 Lead [EK] Routine 12/15/19 21:56 EKG Documentation Completion [RC] ASDIRECTED 12/15/19 22:00 Sodium Chloride 0.9% [Normal Saline] 1,000 ml IV ASDIRECTED 12/15/19 22:18 CULTURE URINE [RM] Stat 12/15/19 22:27 Accu Check [Blood Glucose Check, Bedside] [RC] ONETIME 12/15/19 22:56 Chest 1V Frontal [CR] Stat 12/15/19 23:22 Blood Culture x2 Reflex Set [OM.PC] Urgent 12/15/19 23:27 Admission Status [Patient Status] [ADT] Routine Cardiac Monitoring [RC] .As Directed 12/15/19 23:29 Blood Glucose Check, Bedside [RC] ASDIRECTED Up With Assistance [RC] ASDIRECTED Acetaminophen [Tylenol] 650 mg PO Q4H PRN Ondansetron [Zofran] 4 mg IV Q6H PRN Resuscitation Status Routine 12/15/19 23:30 Intake and Output [RC] QSHIFT Oxygen Therapy [RC] PRN Pulse Oximetry [RC] CONTINUOUS VTE/DVT Education [RC] Per Unit Routine Vital Signs [RC] Q4H 12/15/19 23:31 Head wo Cont [CT] Stat 12/15/19 23:35 CULTURE BLOOD [BC] Urgent LACTATE SEPSIS W/ REFLEX [CHEM] Stat 12/15/19 23:40 CULTURE BLOOD [BC] Urgent 12/15/19 Dinner Consistent Carbohydrate Diet [DIET] 12/16/19 05:11 BASIC METABOLIC PANEL,BMP [CHEM] AM CBC WITH AUTO DIFF [HEME] AM
[2019-12-15] MEDS ORDERED: 50% Dextrose in Water 50 ML Syringe ONE (21:41)
[2019-12-15] MEDS ORDERED: Sodium Chloride 0.9% 10 ML Syringe FLUSH PRN (21:55)
[2019-12-15] MEDS ORDERED: Sodium Chloride 0.9% 500 ML IV ONE (21:57)
[2019-12-15] MEDS: Sodium Chloride 0.9% 1,000 ML IV SCH (22:43)
[2019-12-15] MEDS ORDERED: Acetaminophen 325 MG Tab PO PRN (23:29)
[2019-12-15] MEDS ORDERED: Ondansetron 4 MG/2 ML SDV IV PRN (23:29)
[2019-12-16] MEDS: Saccharomyces Boulardii (Probiotic) 250 MG Cap PO SCH ×2 (00:56→09:37)
[2019-12-16] MEDS: Piperacillin/Tazobactam 3.375 GM in Sodium Chloride 0.9% 50 ML IV SCH ×2 (00:57→09:37)
[2019-12-16] MEDS: Sodium Chloride 0.9% 1,000 ML IV SCH ×2 (05:20→05:21)
[2019-12-16] MEDS ORDERED: Piperacillin/Tazobactam 3.375 GM in Sodium Chloride 0.9% 50 ML IV SCH (08:30)
--- NOTE | 2019-12-16 10:32 | CR ---
INDICATION: Low oxygen sats. CHEST, 1 VIEW: An AP, upright portable view of the chest, 12/16/19, was compared with 12/06/19 and 09/15/19, again revealing evidence of exogenous obesity. The heart did not appear enlarged. Overlying EKG leads noted. The mediastinum was unremarkable. A definite active infiltrate or effusion was not identified. IMPRESSION: No acute process. Fairly stable appearance of the chest. Exogenous obesity. MTDD
--- NOTE | 2019-12-16 11:53 | HP ---
ADMISSION DATE: 12/15/2019 REASON FOR VISIT: Low sugar event. HISTORY OF PRESENT ILLNESS: Leatha Corcoran is a 39-year-old single female, resident of [place], who was as seen at [facility] ER by Dr. Molina on the evening of 12/15/19. She was brought by the local ambulance. Late afternoon, she was at a local [employer] hardware store with her 16-year-old son, was shopping, noticed that balance was off, began to stumble. She had been active through the day and continued to work. Blood sugar was low. She drank some orange juice. She then bought Cubito, and ate. Sugars continued to be normal at 130 but lethargic. EMS found sugar was 130, seemed to be "out of it." Un-awakeful, unrestful, otherwise problematic. Was hospitalized about 8 days ago with similar concerns. Diagnostic studies were unremarkable. Discharged in good condition. Does have type 1 diabetes mellitus, on 2 insulin therapy for diabetes. Since admission, she has been given some IV fluids, sugars have been 163 and 135. MEDICATIONS: Daily medications include: 1. Alprazolam 1 mg q.i.d. p.r.n. for anxiety. 2. 81 mg baby aspirin, NIDDM. 3. Atorvastatin 40 mg 1 p.o., hyperlipidemia. 4. Flexeril 10 mg b.i.d., muscle relaxant. 5. Escitalopram 30 mg daily, mood stabilizer. 6. Gabapentin 300 mg 1 p.o. t.i.d., PTSD. 7. Hydrocodone 1 q.i.d. p.r.n. for pain. 8. Insulin NovoLog per protocol. 9. Lantus 62 units at bedtime. 10.Prilosec 20 mg once daily, GERD. ALLERGIES: Codeine, rash. PAST MEDICAL HISTORY: Significant for some complicated health issues. In 2016, she was hospitalized with acute gallbladder, problematic outcome in recovery, had cholecystectomy, partial pancreatectomy, splenectomy, and had a 9-month hospital stay. She had kidney stones in 2012, and has had 2 surgeries for ulnar nerve for ulnar neuropathy. Chronic illnesses include diabetes mellitus, mood disorder, PTSD, hypertension, and hyperlipidemia. SOCIAL HISTORY: Single, but has a significant other, a son age 16. Nonsmoker. No alcohol. No vaping. No illicit drug use. FAMILY HISTORY: Mom 72; diabetes mellitus. Dad is 83; diabetes mellitus. 5 brothers, 2 sisters, 8 children total; all in good health. No early heart disease type or inheritable cancers. REVIEW OF SYSTEMS: CONSTITUTIONAL: Feeling better this morning. HEENT: Eyes: Sees well. Ears: Hears well. Oropharynx: Intact dentition. CARDIOVASCULAR: No chest pain, palpitations, or syncope. RESPIRATORY: No chronic cough, congestion, or wheezing. GASTROINTESTINAL: Regular predictable stools. No blood in stools. GENITOURINARY: Good voiding pattern. No blood in urine. SKIN: No lesions, eruptions, or moles. ENDOCRINE: No excessive thirst or urination. ALLERGIES: Noted. ORTHOPEDIC: Generalized joint complaints. PHYSICAL EXAMINATION: VITAL SIGNS: 36.7, 92, 107/59, 18, and 92%. GENERAL: Appears comfortable this morning. Awake, alert, and appropriate. HEENT: Funduscopic benign. Conjunctivae are clear. Bright tympanic membranes. Clear nasal discharge. Mouth and oropharynx are clear. NECK: Benign. Thyroid small. CHEST: On auscultation, clear in all lung singletary. HEART: On auscultation, no ectopy or murmur. ABDOMEN: Obese and rotund without hepatosplenomegaly. Large surgical scars are well healed, upper abdomen. GENITOURINARY AND RECTAL: Deferred. EXTREMITIES: Well perfused. NEUROMUSCULAR: Intact. LABORATORY STUDIES: White count 21,300, repeat 18,400; platelets 478,000 and 458,000; and marked lymphocytosis. Arterial blood gases; 7.36 and pCO2 of 39. Electrolytes revealed glucose of 197 and 156. GFR 42, better at 62 upon repeat. Urinalysis noted large amount of occult blood, small bilirubin, 20 to 30 red cells, 15 to 20 white cells, positive for opiates and oxycodone. Medications noted as appropriate. ASSESSMENT: 1. Complicated issues of health and well being. 2. Diabetes. 3. Mood altering medications. PLAN: We will continue observation, IV fluids, and hydration. Observation through the day, and likely discharge home tonight. /[id number] CHRIS/JACK GRAMAJO
[2019-12-16] MEDS ORDERED: Ciprofloxacin 250 MG Tab PO SCH (16:00)
--- NOTE | 2019-12-17 07:21 | DISCH ---
DISCHARGE DATE: 12/16/2019 HISTORY OF PRESENT ILLNESS: Leatha Santamaria is a 39-year-old, female, admitted with hypoglycemic symptoms and weakness. She has maintained a comfortable well-being today. IV fluids have been continued. Sugars 163, 135, 206, and 170. An A1c was ordered but not available for review. Anxious to go home. SURGICAL PROCEDURES: None. CONSULTATION: None. PHYSICAL EXAMINATION: VITAL SIGNS: 36.8, 92, 104/66, 20, and 96. GENERAL: Appears comfortable. PLAN: Discharge home, follow up with her primary doctor and e commerce marketing analyst. Strong recommendation for cutaneous glucose monitoring and insulin pump taken under consideration. 30 minute discharge, treatment plan and care. /[id number] CHRIS/JACK
== END 2019-12-16 19:00 | disposition home or self-care (01) ==
LOC: FB.ED 21:17 → FB.MS 23:34
PROVIDERS: ADMIT Emergency Medicine; ATTEND Family Medicine
DX: E10.649 Type 1 diabetes mellitus with hypoglycemia without coma (principal); G93.40 Encephalopathy, unspecified; N39.0 Urinary tract infection, site not specified; E66.9 Obesity, unspecified; F41.9 Anxiety disorder, unspecified; F32.9 Major depressive disorder, single episode, unspecified; F43.10 Post-traumatic stress disorder, unspecified; K21.9 Gastro-esophageal reflux disease without esophagitis; E10.42 Type 1 diabetes mellitus with diabetic polyneuropathy; N17.9 Acute kidney failure, unspecified; Z88.5 Allergy status to narcotic agent; Z79.899 Other long term (current) drug therapy; Z68.37 Body mass index [BMI] 37.0-37.9, adult
CPT/HCPCS: 36415; 70450; 71045; 80048; 80053; 80305; 81001; 82803; 82962; 83605; 83735; 85025; 86140; 87040; 87086; 87088; 87186; 93005; 99285; A9270; J2543; J3370; J7030; J7040; J7050; 96360; 96361; 96365; 96375; 96376; G0378

== ENCOUNTER 2020-02-01 07:59 | Emergency (ER) | payer MEDICAID ==
[2020-02-01] MEDS ORDERED: Albuterol/Ipratropium 3.0-0.5 MG/3 ML Neb Soln NEB ONE ×2 (08:38→09:59)
--- NOTE | 2020-02-01 08:42 | EDM.PDOC ---
ED HPI GENERAL MEDICAL PROBLEM - General Chief Complaint: Diabetic Complaint Time Seen by Provider: 02/01/20 08:15 Source of Information: Reports: Patient, Family History Limitations: Reports: No Limitations - History of Present Illness INITIAL COMMENTS - FREE TEXT/NARRATIVE: c/o fatigue pt felt fine yesterday, however was more irritable last night which can indicate an infection as per her sig other, also noted to have a strong odor to her urine was more sleepy that usual this AM with BS 56 pt denies pain here with sig other who thinks she has a UTI pt conversant, has her dog with her MPMP last month with 120 tabs of alprazolam 1 mg on 01/03, 120 tabs of hc/apap 10/325 on 12/24, 90 tabs of gabapentin 300 mg on 01/02. [place] [address] [place] [address] in [place]. PMH NEURO: tension GAMEZ, head injury, acute encephalopathy RENAL: acute kidney injury : UTI ORTHO: neck sprain, R ankle sprain, muscles sprain ENDOCR: hypoglycemia, DM1 uncontrolled BEH: KIM PUL: hypoxia, PE CV: hypotension [facility]: atorv 10/d, asa 81/d GI: omepr 20/d ENDOC: Novolog, Lantus 62u hs PAIN: gabapentin 300 tid BEH: escitalopram 30/d, alpraz 1 qid ORTHO; cyclbenza 10 bid LABS IN [facility] 7w ago wbc 18.4, plt 458, hgb 11.6, 46% segs, 2% bands. 7w ago VBG with pH 7.36, pCO2 39.4. lactic acid 0.7. Mg 1.7 7w ago CRP 1.8. 7w ago u/a with 20-30 rbc, 5-10 wbc, many bacteria 7w ago utox with positive opiates/oxycod/tricyclics/benzodiaz 7w ago BC x 2 neg, UC with E coli > 100k sens all 2m ago UC also with E coli > 100k sens all 2m ago d-dimer 1.17 (normal 0-0.59) 5m ago INR 0.96 coronavirus neg 2m ago and 3m ago IMAGING 7w ago last CxR with no acute process 7w ago head CT neg for acute process Right Abdomen Pain Score (Numeric/FACES): 4 - Related Data Allergies Allergy/AdvReac Type Severity Reaction Status Date / Time codeine Allergy Rash Verified 12/06/19 01:23 Home Meds: Home Meds ALPRAZolam [Alprazolam] 1 mg PO QID 08/09/18 [History] Aspirin [Halfprin] 81 mg PO DAILY 08/09/18 [History] Cyclobenzaprine [Flexeril] 10 mg PO BID 08/09/18 [History] Escitalopram [Lexapro] 30 mg PO DAILY 08/09/18 [History] Gabapentin [Neurontin] 300 mg PO TID 08/09/18 [History] Hydrocodone/Acetaminophen [Hydrocodon-Acetaminophn 10-325] 1 each PO QID PRN 0 08/09/18 [History] Omeprazole 20 mg PO DAILY 08/09/18 [History] Insulin Aspart [NovoLOG] 22 unit SQ TID 10/30/19 [History] Insulin Glargine,Hum.Rec.Anlog [Lantus Solostar] 62 units SQ BEDTIME 10/30/19 [History] atorvaSTATin [Lipitor] 10 mg PO DAILY 10/30/19 [History] Insulin Aspart [NovoLOG] 1 - 12 unit SQ WITHMEALSANDBED PRN 12/06/19 [History] Acetaminophen [Tylenol] 650 mg PO Q4H PRN tablet 12/16/19 [Rx] Past Medical History HEENT History: Reports: Impaired Vision, Other (See Below) Other HEENT History: Contact lens bilaterally. Cardiovascular History: Reports: SOB on Exertion, Other (See Below) Other Cardiovascular History: hx peracardiocentesis Respiratory History: Reports: PE, Pneumothorax, Other (See Below) Other Respiratory History: Hx: Respiratory distress, hx thoracentesis, hx former trach, Pneumonia Gastrointestinal History: Reports: GERD, Pancreatitis, Other (See Below) Other Gastrointestinal History: Nectrotizing pancreatitis. Genitourinary History: Reports: Renal Calculus Other Genitourinary History: recently hosptialized and treated for UTI; released 2 days ago. FUEL HANDLER History: Reports: Other FUEL HANDLER History: Musculoskeletal History: Reports: Other (See Below) Other Musculoskeletal History: hx R foot drop Neurological History: Reports: Concussion, Neuropathy, Peripheral, Other (See Below) Other Neuro History: Nerve damage to the right leg and right arm. 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, R shoulder, R brain - Infectious Disease History Infectious Disease History: Reports: Chicken Pox - Past Surgical History Head Surgeries/Procedures: Reports: Other (See Below) Respiratory Surgical History: Reports: Thoracentesis, Tracheostomy GI Surgical History: Reports: Cholecystectomy, EGD, Other (See Below) Other GI Surgeries/Procedures: Spleenectomy, exp lap, numerous abd surgeries, partial removal of pancreas & stomach Female Surgical History: Reports: Lithotripsy/ESWL, Ureteral Stent Neurological Surgical History: Reports: Other (See Below) Other Neurological Surgeries/Procedures: brain surgery for clear cell carcinoma Musculoskeletal Surgical History: Reports: Other (See Below) Other Musculoskeletal Surgeries/Procedures:: R elbow surgery, hx ulnar nerve damage Dermatological Surgical History: Reports: Skin Graft Social & Family History - Family History Family Medical History: Noncontributory - Caffeine Use Caffeine Use: Reports: Coffee, Energy Drinks, Soda, Tea Other Caffeine Use: Energy drinks 2/week, Coffee Caffeine Use Comment: every other day - Living Situation & Occupation Living situation: Reports: with Significant Other ED ROS GENERAL - Review of Systems Review Of Systems: See Below Constitutional: Reports: No Symptoms, Other (sleepy). Denies: Fever, Chills, Night Sweats, Diaphoresis, Decreased Appetite HEENT: Reports: No Symptoms Respiratory: Reports: Wheezing Cardiovascular: Reports: No Symptoms Endocrine: Reports: No Symptoms GI/Abdominal: Reports: No Symptoms : Reports: No Symptoms Musculoskeletal: Reports: No Symptoms Skin: Reports: No Symptoms Neurological: Reports: No Symptoms Psychiatric: Reports: No Symptoms Hematologic/Lymphatic: Reports: No Symptoms Immunologic: Reports: No Symptoms ED EXAM GENERAL NO PERIP PULSE - Physical Exam Exam: See Below Exam Limited By: No Limitations General Appearance: Alert, WD/WN, No Apparent Distress Nose: Normal Inspection, Normal Mucosa Throat/Mouth: Normal Inspection, Normal Lips, Normal Voice, No Airway Compromise Head: Atraumatic, Normocephalic Neck: Normal Inspection, Supple, Non-Tender, Full Range of Motion. No: Lymphadenopathy (R), Lymphadenopathy (L) Respiratory/Chest: Other (mild exp wheeze, slight inc'd exp phase, fair to good AE, no accessory muscles, no retractions, no purse lips, no dyspnea, talks in 10-word sentences) Cardiovascular: Regular Rate, Rhythm, No Gallop, No Murmur, Other (trace pretib edema b/l) GI/Abdominal: Normal Bowel Sounds, Soft, Non-Tender, No Distention Extremities: Normal Inspection, Normal Range of Motion, Non-Tender Neurological: Alert, Oriented, CN II-XII Intact, Normal Cognition, No Motor/Sensory Deficits Psychiatric: Anxious Skin Exam: Warm, Dry, Intact, Normal Color, No Rash Lymphatic: No Adenopathy Course - Vital Signs Last Recorded V/S: Last Vital Signs Temp 36.8 C 02/01/20 08:25 Pulse 105 H 02/01/20 10:17 Resp 13 02/01/20 08:25 BP 111/84 02/01/20 08:25 Pulse Ox 94 L 02/01/20 08:25 - Orders/Labs/Meds Orders: Active Orders 24 hr Category Date Time Status Blood Glucose Check, Bedside [RC] ONETIME Care 02/01/20 11:35 Active EKG Documentation Completion [RC] ASDIRECTED Care 02/01/20 10:52 Ordered RT Aerosol Therapy [RC] ASDIRECTED Care 02/01/20 08:41 Active RT Aerosol Therapy [RC] ASDIRECTED Care 02/01/20 09:59 Active CULTURE URINE [RM] Stat Lab 02/01/20 08:50 Received Sodium Chloride 0.9% [Normal Saline] 1,000 ml Med 02/01/20 10:52 Ordered IV .BOLUS EKG 12 Lead [EK] Routine Ther 02/01/20 10:52 Ordered Medication Orders Sodium Chloride (Normal Saline) 1,000 mls @ 999 mls/hr IV .BOLUS ONE Stop: 02/01/20 11:52 Last Admin: 02/01/20 11:06 Dose: 999 mls/hr Documented by: Labs: Laboratory Tests 02/01/20 02/01/20 02/01/20 Range/Units 08:38 09:10 09:10 Sodium 140 (135-145) mmol/L Potassium 4.1 (3.5-5.3) mmol/L Chloride 103 (100-110) mmol/L Carbon Dioxide 29 (21-32) mmol/L BUN 19 H (7-18) mg/dL Creatinine 1.4 H (0.55-1.02) mg/dL Est Cr Clr Drug Dosing 46.13 mL/min Estimated GFR (MDRD) 42 L (>60) BUN/Creatinine Ratio 13.6 (9-20) Glucose 75 L D (80-116) mg/dL Calcium 9.2 (8.6-10.2) mg/dL Magnesium (1.8-2.5) mg/dL Total Bilirubin 0.2 (0.1-1.3) mg/dL AST 23 (5-25) IU/L ALT 28 (12-36) U/L Alkaline Phosphatase 74 (56-112) IU/L Troponin I (4.0-60.3) pg/mL C-Reactive Protein 0.9 (0.5-0.9) mg/dL NT-Pro-B Natriuret Pep (<=125) pg/mL Total Protein 8.1 H (6.0-8.0) g/dL Albumin 4.0 (3.5-5.2) g/dL Globulin 4.1 g/dL Albumin/Globulin Ratio 1.0 Urine Color Yellow (YELLOW) Urine Appearance Cloudy (CLEAR) Urine pH 5.0 (5.0-6.5) Ur Specific Mineral 1.025 (1.010-1.025) Urine Protein Trace (NEGATIVE) mg/dL Urine Glucose (UA) Normal (NORMAL) mg/dL Urine Ketones Negative (NEGATIVE) mg/dL Urine Occult Blood Negative (NEGATIVE) Urine Nitrite Negative (NEGATIVE) Urine Bilirubin Small H (NEGATIVE) Urine Urobilinogen 1 H (NEGATIVE) mg/dL Ur Leukocyte Esterase Moderate H (NEGATIVE) Urine RBC 0-5 (0-5) Urine WBC 50-75 H (0-5) Ur Squamous Epith Cells Few H (NS,R,O) Urine Bacteria Many H (NS) 02/01/20 02/01/20 Range/Units 09:10 09:10 Sodium (135-145) mmol/L Potassium (3.5-5.3) mmol/L Chloride (100-110) mmol/L Carbon Dioxide (21-32) mmol/L BUN (7-18) mg/dL Creatinine (0.55-1.02) mg/dL Est Cr Clr Drug Dosing mL/min Estimated GFR (MDRD) (>60) BUN/Creatinine Ratio (9-20) Glucose (80-116) mg/dL Calcium (8.6-10.2) mg/dL Magnesium 1.9 (1.8-2.5) mg/dL Total Bilirubin (0.1-1.3) mg/dL AST (5-25) IU/L ALT (12-36) U/L Alkaline Phosphatase (56-112) IU/L Troponin I 6.6 (4.0-60.3) pg/mL C-Reactive Protein (0.5-0.9) mg/dL NT-Pro-B Natriuret Pep 58 (<=125) pg/mL Total Protein (6.0-8.0) g/dL Albumin (3.5-5.2) g/dL Globulin g/dL Albumin/Globulin Ratio Urine Color (YELLOW) Urine Appearance (CLEAR) Urine pH (5.0-6.5) Ur Specific Mineral (1.010-1.025) Urine Protein (NEGATIVE) mg/dL Urine Glucose (UA) (NORMAL) mg/dL Urine Ketones (NEGATIVE) mg/dL Urine Occult Blood (NEGATIVE) Urine Nitrite (NEGATIVE) Urine Bilirubin (NEGATIVE) Urine Urobilinogen (NEGATIVE) mg/dL Ur Leukocyte Esterase (NEGATIVE) Urine RBC (0-5) Urine WBC (0-5) Ur Squamous Epith Cells (NS,R,O) Urine Bacteria (NS) Meds: Medications Generic Name Dose Route Start Last Admin Trade Name Freq PRN Reason Stop Dose Admin Sodium Chloride 1,000 mls @ 999 mls/hr 02/01/20 10:52 02/01/20 11:06 Normal Saline IV 02/01/20 11:52 999 mls/hr .BOLUS ONE Administration Discontinued Medications Generic Name Dose Route Start Last Admin Trade Name Freq PRN Reason Stop Dose Admin Albuterol/Ipratropium 3 ml 02/01/20 08:38 02/01/20 08:49 Duoneb 3.0-0.5 Mg/3 Ml NEB 02/01/20 08:39 3 ml ONETIME ONE Administration Albuterol/Ipratropium 3 ml 02/01/20 09:59 02/01/20 10:16 Duoneb 3.0-0.5 Mg/3 Ml NEB 02/01/20 10:00 3 ml ONETIME ONE Administration Ceftriaxone Sodium 1 gm 02/01/20 10:00 02/01/20 10:16 Rocephin IM 02/01/20 10:01 1 gm ONETIME ONE Administration Glucagon 1 mg 02/01/20 09:59 02/01/20 10:16 Glucagen IM 02/01/20 10:00 1 mg ONETIME ONE Administration - Re-Assessments/Exams Free Text/Narrative Re-Assessment/Exam: 02/01/20 09:46 CURRENT LABS BUN/creat 19/1.4 now with ratio 13.6 and GFR 42. Baseline 8/0.7 with GFR >60. CRP 0.9 u/a with 50-75 wbc, many bacteria TP 8.1 glu 75 02/01/20 11:05 WBC 22k, plts 536, diff pending pt still very sleepy despite Duoneb x [address] Loredo from radiology says there is an infiltrate at RLL as well as a new R sided effusion last BNP was wnl altho has been inc'd in past, trop and BNP and EKG are all pending pt likely has a RLL pneumonia given her WBC 22 pt also has ARF with dehydration, she is sedated from inadequate clearing of her Ativan and hc/apap and gabapentin she has hypoglycemia as well d/t ARF and inadequate clearing of insulin pt originally from [place], moved to [facility] 2y ago, lives with one of our local paramedics Jordy pt has had 7th ED visits here in 2019 and 2 hosp here in 2019, all appear related to falls and sedation from the addition of gabapentin to her med regimen in Apr 2019, begun on 100 mg, now at 300 mg TID which she is taking in additional Ativan 1 mg QID and hc/apap 10/325 QID, both of which she has been for at least the past year as per MPMP pt has 3 providers, Venus Deluna is her PCP and has rx'ed her controlled meds, Dr Gonzalez is endocrine, and Dr Cronin from kidney transplant service is still involved in her care pt reports she had necrotizing pancreatitis in 2017 from unknown etiology and was hospitalized for 9m, had removal of her GB and spleen and 1/2 her stomach of note, pt admitted here 2m ago with similar sxs, somnolence, GFR 42 and E coli UTI, she was tx'ed overnight in hosp with IVF and antbxs with correction of GFR to >60 02/01/20 11:29 d/w Jordy, body mechanic apprentice, her sig other who lives with her, he is aware that she is being overmedicated and then becomes dehydrated which creates a viscous cycle and prolongs the clearance of her meds as psychiatric services are not available here, pt is referred to [facility] for admission accepted by Dr Ramsay to the [facility] 02/01/20 11:54 pt agrees with transfer, EKG is SR and wnl, trop and BNP and Mg are still pending Departure - Departure Time of Disposition: 11:55 Disposition: DC/Tfer to Inpt Rehab Fac 62 Condition: Fair Clinical Impression: Hypoxia, Hypoglycemia, Medication adverse effect, Medication addiction, continuous, Acute renal insufficiency, Moderate dehydration, Personality traits or coping style affecting medical condition, Leukocytosis, Thrombocytopenia, Right lower lobe pulmonary infiltrate, Pleural effusion, right, Generalized anxiety disorder, Right lower lobe pneumonia, Sedated due to multiple medications Urinary tract infection Qualifiers: Urinary tract infection type: site unspecified Hematuria presence: with hematuria Qualified Code(s): N39.0 - Urinary tract infection, site not specified - Discharge Information *PRESCRIPTION DRUG MONITORING PROGRAM REVIEWED*: Yes *COPY OF PRESCRIPTION DRUG MONITORING REPORT IN PATIENT CARITO: Yes Referrals: PCP,None [Primary Care Provider] - Forms: ED Department Discharge Sepsis Event Note (ED) - Evaluation Sepsis Screening Result: No Definite Risk - Focused Exam Vital Signs: Vital Signs Temp Pulse Resp BP Pulse Ox Pulse Ox 02/01/20 10:17 105 H 02/01/20 09:16 105 H 02/01/20 08:25 36.8 C 100 13 111/84 94 L 02/01/20 08:05 77 L - My Orders Last 24 Hours: My Active Orders 02/01/20 08:41 RT Aerosol Therapy [RC] ASDIRECTED 02/01/20 08:50 CULTURE URINE [RM] Stat 02/01/20 09:59 RT Aerosol Therapy [RC] ASDIRECTED 02/01/20 10:52 EKG Documentation Completion [RC] ASDIRECTED Sodium Chloride 0.9% [Normal Saline] 1,000 ml IV .BOLUS EKG 12 Lead [EK] Routine 02/01/20 11:35 Blood Glucose Check, Bedside [RC] ONETIME - Assessment/Plan Last 24 Hours: My Active Orders 02/01/20 08:41 RT Aerosol Therapy [RC] ASDIRECTED 02/01/20 08:50 CULTURE URINE [] Stat 02/01/20 09:59 RT Aerosol Therapy [RC] ASDIRECTED 02/01/20 10:52 EKG Documentation Completion [RC] ASDIRECTED Sodium Chloride 0.9% [Normal Saline] 1,000 ml IV .BOLUS EKG 12 Lead [EK] Routine 02/01/20 11:35 Blood Glucose Check, Bedside [RC] ONETIME
[2020-02-01] MEDS ORDERED: Glucagon,Human Recombinant 1 MG Vial IM ONE (09:59)
[2020-02-01] MEDS ORDERED: cefTRIAXone 1 GM Vial IM ONE (10:00)
[2020-02-01] MEDS ORDERED: Sodium Chloride 0.9% 1,000 ML IV ONE ×2 (10:52→14:39)
--- NOTE | 2020-02-01 11:02 | CR ---
INDICATION: Short of breath. CHEST TWO VIEWS: PA and lateral views of the chest were obtained 02/01/20 and compared with 12/15/19 and 12/06/19. Evidence of exogenous obesity is noted. Elevated right hemidiaphragm is again noted which may be at least partly anatomic. However, there does appear to be some pleuroparenchymal change in the area of the right lower lobe which may be on the basis of pneumonia and pleuritis and should be correlated clinically - there is blunting of the posterior sulcus on the right. The heart appeared normal in size and shape - mediastinum was unremarkable. Minimal dextroconcave scoliosis of the mid thoracic spine is noted. Overlying EKG leads are noted. IMPRESSION: 1. Pleuroparenchymal change suggested in the right lower lobe area. At least a portion of this finding was present on a CT scan dated 12/06/19, but there now appears to be pleural fluid which was not definitely present on that previous CT scan. Although findings may be at least partly on the basis of fibrosis and possibly atelectasis, the possibility of pneumonia and pleuritis cannot be excluded in the right lower lobe. 2. Exogenous obesity. Report was called to Dr. Cannon at 1038 hours. [facility]
--- NOTE | 2020-02-01 11:15 | PCM.SN.2 ---
- Free Text/Narrative Note: ANESTHESIA SERVICES Time: 1049 to 1059 Date: 02/01/2020 DX: Multiple complaints including Very Poor Peripheral Venous Acces Rx: Obtain Peripheral Venous Access Procedure: Peripheral Venous Access Insertion I was called to the ED by the ED physician to obtain venous access. She has a long, complicated Hx of attempting venous acces. I found a superficial vein on her right anterior distal forearm. I prepped the area with alcohol wipes X 3 and deadened the insertion site with "freezing skin" spray. I inserted and advanced X 1 attempt a BD Insyte [employer]og[employer]ard 24 GA X 0.75 IN catheter. It flushed well without difficulty using 10 ml's of normal saline. An Op-Site dressing was applied. She tolerated this well. [employer] Luna CRNA
== END 2020-02-01 14:50 ==
LOC: FB.ED 07:59
DX: J18.9 Pneumonia, unspecified organism (principal); F41.1 Generalized anxiety disorder; N28.9 Disorder of kidney and ureter, unspecified; R09.02 Hypoxemia; D69.6 Thrombocytopenia, unspecified; R91.8 Other nonspecific abnormal finding of lung field; D72.829 Elevated white blood cell count, unspecified; E86.0 Dehydration; T50.905A Adverse effect of unspecified drugs, medicaments and biological substances, initial encounter; N39.0 Urinary tract infection, site not specified; R31.9 Hematuria, unspecified; Z73.1 Type A behavior pattern; E10.42 Type 1 diabetes mellitus with diabetic polyneuropathy; E66.9 Obesity, unspecified; F32.9 Major depressive disorder, single episode, unspecified; K21.9 Gastro-esophageal reflux disease without esophagitis; Z88.5 Allergy status to narcotic agent; Z79.82 Long term (current) use of aspirin; Z79.899 Other long term (current) drug therapy
CPT/HCPCS: 31500; 36415; 71046; 80053; 81001; 82962; 83735; 83880; 84484; 86140; 87086; 87088; 87186; 93005; 94640; 96360; 96361; 96372; 99285-25; J0696; J1610; J7030; J7620-GY

== ENCOUNTER 2020-03-18 01:06 | Emergency (ER) | payer MEDICAID ==
[2020-03-18] MEDS ORDERED: Sodium Chloride 0.9% 1,000 ML IV ONE (01:07)
[2020-03-18] MEDS: Naloxone 0.4 MG/ML SDV IVPUSH PRN ×2 (01:08→01:47)
[2020-03-18] MEDS: EPINEPHrine 1:10,000 1 MG/10 ML Syringe IVPUSH PRN ×6 (01:09→02:06)
[2020-03-18] MEDS ORDERED: Sodium Chloride 0.9% 10 ML Syringe FLUSH PRN (01:21)
[2020-03-18] MEDS: Sodium Bicarbonate 8.4% 50 MEQ/50 ML Syringe IVPUSH PRN ×2 (01:26→02:09)
[2020-03-18] MEDS ORDERED: Norepinephrine 4 MG in Dextrose 5% in Water 246 ML IV SCH ×2 (01:40)
--- NOTE | 2020-03-18 01:47 | EDM.PDOC ---
ED HPI GENERAL MEDICAL PROBLEM - General Stated Complaint: CARDIAC ARREST Time Seen by Provider: 03/18/20 01:10 Source of Information: Reports: EMS, Family History Limitations: Reports: No Limitations - History of Present Illness INITIAL COMMENTS - FREE TEXT/NARRATIVE: Patient is a 39 YO WF who presented to the ED post cardiorespiratory arrest. According to her friend who is also her POA Leatha was diagnosed with pneumonia 3 days ago and is taking Amoxicillin for it. Tonight she was c/o of dyspnea and is wheezing. She took her albuterol inhaler and went to bed but her dyspnea has progressively gotten worse. She then became unresponsive and her friend did CPR and called EMS. Upon EMS arrival at the scene patient was on asystole, 2 doses of epi was given IV, CPR via Bernard was continued. Patient then converted to VTAC and amiodarone 300 mg IV x1 was given and 2 shocks delivered. Patient regained her VS after CPR and 7 doses of epinephrine. Upon her arrival in the ED she was on PEA, CPR continued, 6 more doses of epi,2 narcans, and 2 bicarbs. Patient have VS intermittently and goes to PEA again several times during the resuscitation. The resuscitation was finally called off at 0211 am. - Related Data Allergies Allergy/AdvReac Type Severity Reaction Status Date / Time codeine Allergy Rash Verified 12/06/19 01:23 Home Meds: Home Meds ALPRAZolam [Alprazolam] 1 mg PO QID 08/09/18 [History] Aspirin [Halfprin] 81 mg PO DAILY 08/09/18 [History] Cyclobenzaprine [Flexeril] 10 mg PO BID 08/09/18 [History] Escitalopram [Lexapro] 30 mg PO DAILY 08/09/18 [History] Gabapentin [Neurontin] 300 mg PO TID 08/09/18 [History] Hydrocodone/Acetaminophen [Hydrocodon-Acetaminophn 10-325] 1 each PO QID PRN 08/09/18 [History] Omeprazole 20 mg PO DAILY 08/09/18 [History] Insulin Aspart [NovoLOG] 22 unit SQ TID 10/30/19 [History] Insulin Glargine,Hum.Rec.Anlog [Lantus Solostar] 62 units SQ BEDTIME 10/30/19 [History] atorvaSTATin [Lipitor] 10 mg PO DAILY 10/30/19 [History] Insulin Aspart [NovoLOG] 1 - 12 unit SQ WITHMEALSANDBED PRN 12/06/19 [History] Acetaminophen [Tylenol] 650 mg PO Q4H PRN tablet 12/16/19 [Rx] Past Medical History HEENT History: Reports: Impaired Vision, Other (See Below) Other HEENT History: Contact lens bilaterally. Cardiovascular History: Reports: SOB on Exertion, Other (See Below) Other Cardiovascular History: hx peracardiocentesis Respiratory History: Reports: PE, Pneumothorax, Other (See Below) Other Respiratory History: Hx: Respiratory distress, hx thoracentesis, hx former trach, Pneumonia Gastrointestinal History: Reports: GERD, Pancreatitis, Other (See Below) Other Gastrointestinal History: Nectrotizing pancreatitis. Genitourinary History: Reports: Renal Calculus Other Genitourinary History: recently hosptialized and treated for UTI; released 2 days ago. 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, R shoulder, R brain Dermatologic History: Reports: None - Infectious Disease History Infectious Disease History: Reports: Chicken Pox - Past Surgical History Head Surgeries/Procedures: Reports: Other (See Below) Respiratory Surgical History: Reports: Thoracentesis, Tracheostomy GI Surgical History: Reports: Cholecystectomy, EGD, Other (See Below) Other GI Surgeries/Procedures: Spleenectomy, exp lap, numerous abd surgeries, partial removal of pancreas & stomach Female Surgical History: Reports: Lithotripsy/ESWL, Ureteral Stent Neurological Surgical History: Reports: Other (See Below) Other Neurological Surgeries/Procedures: brain surgery for clear cell carcinoma Musculoskeletal Surgical History: Reports: Other (See Below) Other Musculoskeletal Surgeries/Procedures:: R elbow surgery, hx ulnar nerve damage Dermatological Surgical History: Reports: Skin Graft Social & Family History - Family History Family Medical History: Noncontributory - Caffeine Use Caffeine Use: Reports: Coffee, Energy Drinks, Soda, Tea Other Caffeine Use: Energy drinks 2/week, Coffee Caffeine Use Comment: every other day - Living Situation & Occupation Living situation: Reports: with Significant Other ED ROS GENERAL - Review of Systems Review Of Systems: Unable To Obtain Reason Not Obtained: Patient is unresponsive ED EXAM, CPR - Physical Exam Exam: See Below Limited By: Unresponsive Eye Exam: Bilateral Eye: Other (pupils are fixed and dilated 6-7 mm initially then 10 mm when code was called off) Ears: Normal External Exam Nose: Other (bloody) Throat/Mouth: Other (ontubated) Neck: Other (no carotid pulse) Respiratory Chest: Other (no spontaneous breathing.) Cardiovascular: Other (pulseless) GI/Abdominal Exam: Other (no bpwel sounds) Extremities: Pallor Neurological: Unresponsive Skin Exam: Cool Course - Vital Signs Text/Narrative:: Labs reviewed, 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 results 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 [place] notes on resuscitation event - Orders/Labs/Meds Orders: Active Orders 24 hr Category Date Time Status EKG Documentation Completion [RC] ASDIRECTED Care 03/18/20 01:23 Active Chest 1V Frontal [CR] Stat Exams 03/18/20 01:21 Ordered DRUG SCREEN, URINE ALERE [URCHEM] Stat Lab 03/18/20 01:21 Ordered EPINEPHrine [EPINEPHrine 1:10,000] Med 03/18/20 04:33 Active 1 mg IVPUSH ONETIME PRN Norepinephrine [Levophed] 4 mg Med 03/18/20 01:40 Active Dextrose 5% in Water 246 ml IV TITRATE Sodium Bicarbonate [Sodium Bicarbonate 8.4%] Med 03/18/20 04:35 Active 50 meq IVPUSH ONETIME PRN Sodium Chloride 0.9% [Saline Flush] Med 03/18/20 01:21 Active 10 ml FLUSH ASDIRECTED PRN Saline Lock Insert [OM.PC] Routine Oth 03/18/20 01:21 Ordered EKG 12 Lead [EK] Routine Ther 03/18/20 01:21 Ordered Medication Orders Epinephrine HCl (Epinephrine 1:10,000) 1 mg IVPUSH ONETIME PRN PRN Reason: Arrhythmia Last Admin: 03/18/20 02:06 Dose: 1 mg Documented by: Admin: 03/18/20 02:03 Dose: 1 mg Documented by: Admin: 03/18/20 01:59 Dose: 1 mg Documented by: Admin: 03/18/20 01:13 Dose: 1 mg Documented by: JEYSON Norepinephrine Bitartrate 4 mg (/ Dextrose/Water) 250 mls @ 26.25 mls/hr IV TITRATE LAURA; Protocol Last Titration: 03/18/20 01:50 Dose: 20 mcg/min, 75 mls/hr Documented by: Titration: 03/18/20 01:45 Dose: 10 mcg/min, 37.5 mls/hr Documented by: Admin: 03/18/20 01:40 Dose: 7 mcg/min, 26.25 mls/hr Documented by: JEYSON Sodium Bicarbonate (Sodium Bicarbonate 8.4%) 50 meq IVPUSH ONETIME PRN PRN Reason: Other Last Admin: 03/18/20 02:09 Dose: 50 meq Documented by: Admin: 03/18/20 01:26 Dose: 50 meq Documented by: JEYSON Sodium Chloride (Saline Flush) 10 ml FLUSH ASDIRECTED PRN PRN Reason: Keep Vein Open Labs: Laboratory Tests 03/18/20 03/18/20 03/18/20 Range/Units 01:25 01:25 01:25 WBC 54.2 H* (4.5-12.0) X10-3/uL RBC 4.17 (3.23-5.20) x10(6)uL Hgb 12.8 (11.5-15.5) g/dL Hct 41.8 (30.0-51.3) % MCV 100.3 H (80-96) fL MCH 30.7 (27.7-33.6) pg MCHC 30.6 L (32.2-35.4) g/dL RDW 14.9 (11.5-15.5) % Plt Count 266 (125-369) X10(3)uL MPV 7.5 (7.4-10.4) fL Add Manual Diff Yes Neutrophils % (Manual) 44 L (46-82) % Band Neutrophils % 8 H (0-6) % Lymphocytes % (Manual) 35 (13-37) % Monocytes % (Manual) 9 (4-12) % Eosinophils % (Manual) 2 (0-5) % Basophils % (Manual) 1 (0-2) % Metamyelocytes % 1 H (0-0) % Nucleated RBCs 1 H (0-0) /100WBC APTT 50.6 H (24.4-33.2) SECONDS Sodium 138 (135-145) mmol/L Potassium 5.4 H D (3.5-5.3) mmol/L Chloride 100 (100-110) mmol/L Carbon Dioxide 19 L (21-32) mmol/L BUN 14 (7-18) mg/dL Creatinine 2.2 H* (0.55-1.02) mg/dL Est Cr Clr Drug Dosing TNP Estimated GFR (MDRD) 25 L (>60) BUN/Creatinine Ratio 6.4 L (9-20) Glucose 404 H* D (80-116) mg/dL Calcium 8.4 L (8.6-10.2) mg/dL Total Bilirubin 0.5 (0.1-1.3) mg/dL AST 543 H* D (5-25) IU/L ALT 408 H* D (12-36) U/L Alkaline Phosphatase 153 H (56-112) IU/L Troponin I (4.0-60.3) pg/mL Total Protein 6.3 (6.0-8.0) g/dL Albumin 3.0 L (3.5-5.2) g/dL Globulin 3.3 g/dL Albumin/Globulin Ratio 0.9 Ethyl Alcohol (<0.03) % 03/18/20 Range/Units 01:25 WBC (4.5-12.0) X10-3/uL RBC (3.23-5.20) x10(6)uL Hgb (11.5-15.5) g/dL Hct (30.0-51.3) % MCV (80-96) fL MCH (27.7-33.6) pg MCHC (32.2-35.4) g/dL RDW (11.5-15.5) % Plt Count (125-369) X10(3)uL MPV (7.4-10.4) fL Add Manual Diff Neutrophils % (Manual) (46-82) % Band Neutrophils % (0-6) % Lymphocytes % (Manual) (13-37) % Monocytes % (Manual) (4-12) % Eosinophils % (Manual) (0-5) % Basophils % (Manual) (0-2) % Metamyelocytes % (0-0) % Nucleated RBCs (0-0) /100WBC APTT (24.4-33.2) SECONDS Sodium (135-145) mmol/L Potassium (3.5-5.3) mmol/L Chloride (100-110) mmol/L Carbon Dioxide (21-32) mmol/L BUN (7-18) mg/dL Creatinine (0.55-1.02) mg/dL Est Cr Clr Drug Dosing Estimated GFR (MDRD) (>60) BUN/Creatinine Ratio (9-20) Glucose (80-116) mg/dL Calcium (8.6-10.2) mg/dL Total Bilirubin (0.1-1.3) mg/dL AST (5-25) IU/L ALT (12-36) U/L Alkaline Phosphatase (56-112) IU/L Troponin I 104.7 H* (4.0-60.3) pg/mL Total Protein (6.0-8.0) g/dL Albumin (3.5-5.2) g/dL Globulin g/dL Albumin/Globulin Ratio Ethyl Alcohol < 0.03 (<0.03) % Meds: Medications Generic Name Dose Route Start Last Admin Trade Name Freq PRN Reason Stop Dose Admin Epinephrine HCl 1 mg 03/18/20 04:33 03/18/20 02:06 Epinephrine 1:10,000 IVPUSH 1 mg ONETIME PRN Administration Arrhythmia Norepinephrine Bitartrate 4 mg 250 mls @ 26.25 mls/hr 03/18/20 01:40 03/18/20 01:50 / Dextrose/Water IV 20 mcg/min TITRATE LAURA 75 mls/hr Titration Protocol 7 MCG/MIN Sodium Bicarbonate 50 meq 03/18/20 04:35 03/18/20 02:09 Sodium Bicarbonate 8.4% IVPUSH 50 meq ONETIME PRN Administration Other Sodium Chloride 10 ml 03/18/20 01:21 Saline Flush FLUSH ASDIRECTED PRN Keep Vein Open Discontinued Medications Generic Name Dose Route Start Last Admin Trade Name Freq PRN Reason Stop Dose Admin Sodium Chloride 1,000 mls @ 999 mls/hr 03/18/20 01:07 03/18/20 01:07 Normal Saline IV 03/18/20 02:07 999 mls/hr .BOLUS ONE Administration Naloxone HCl 0.4 mg 03/18/20 04:35 03/18/20 01:47 Narcan IVPUSH 0.4 mg ONETIME PRN Administration Sedation Departure - Departure Time of Disposition: 02:10 Disposition: 20 Preliminary Cause of *Q: Respiratory Failure Clinical Impression: Cardiorespiratory failure, Pneumonia, CKD (chronic kidney disease) - Discharge Information - My Orders Last 24 Hours: My Active Orders 03/18/20 01:21 Chest 1V Frontal [CR] Stat DRUG SCREEN, URINE ALERE [URCHEM] Stat Sodium Chloride 0.9% [Saline Flush] 10 ml FLUSH ASDIRECTED PRN Saline Lock Insert [OM.PC] Routine EKG 12 Lead [EK] Routine 03/18/20 01:23 EKG Documentation Completion [RC] ASDIRECTED 03/18/20 01:40 Norepinephrine [Levophed] 4 mg Dextrose 5% in Water 246 ml IV TITRATE 03/18/20 04:33 EPINEPHrine [EPINEPHrine 1:10,000] 1 mg IVPUSH ONETIME PRN 03/18/20 04:35 Sodium Bicarbonate [Sodium Bicarbonate 8.4%] 50 meq IVPUSH ONETIME PRN - Assessment/Plan Last 24 Hours: My Active Orders 03/18/20 01:21 Chest 1V Frontal [CR] Stat DRUG SCREEN, URINE ALERE [URCHEM] Stat Sodium Chloride 0.9% [Saline Flush] 10 ml FLUSH ASDIRECTED PRN Saline Lock Insert [OM.PC] Routine EKG 12 Lead [EK] Routine 03/18/20 01:23 EKG Documentation Completion [RC] ASDIRECTED 03/18/20 01:40 Norepinephrine [Levophed] 4 mg Dextrose 5% in Water 246 ml IV TITRATE 03/18/20 04:33 EPINEPHrine [EPINEPHrine 1:10,000] 1 mg IVPUSH ONETIME PRN 03/18/20 04:35 Sodium Bicarbonate [Sodium Bicarbonate 8.4%] 50 meq IVPUSH ONETIME PRN
== END 2020-03-18 02:11 | disposition expired ==
LOC: FB.ED 01:06
DX: R09.2 Respiratory arrest (principal); J18.9 Pneumonia, unspecified organism; N18.9 Chronic kidney disease, unspecified; E66.9 Obesity, unspecified; F41.9 Anxiety disorder, unspecified; F32.9 Major depressive disorder, single episode, unspecified; E10.42 Type 1 diabetes mellitus with diabetic polyneuropathy; K21.9 Gastro-esophageal reflux disease without esophagitis; Z68.41 Body mass index [BMI] 40.0-44.9, adult; Z88.5 Allergy status to narcotic agent; Z79.82 Long term (current) use of aspirin; Z79.899 Other long term (current) drug therapy
CPT/HCPCS: 36415; 51702; 80053; 80305; 80307; 82962; 84484; 85025; 85730; 92950; 93005; 99285; J0171; J2310; J7030; J7060; 31500